=== PATIENT | male | born 1965 | race Caucasian/White ===

== ENCOUNTER 2018-02-28 09:23 | Emergency (ER) | payer OTHER ==
[~2018-02-28] VITALS: Ht 160 cm; Wt 65.8 kg
[~2018-02-28 09:23] MED LIST: ALBIPROI; ALBU90OI INH; AMLO5; AMOCLA500 PO; AMOX250 PO; AMOX500 PO; ASPI81EC PO; CARVEDILOL; DIVA500EC; FIBER LAXATIVE; HYDGUAL120 PO; LISINOPRIL; MECL25 PO; NORT50; ONDA4ODT MM; OXCA300 PO; RISP.5; [UNRECOGNIZED DRUG - OTHER]
[2018-02-28] MEDS ORDERED: CARV6.25 PO (10:10)
[2018-02-28] MEDS ORDERED: LISI5 PO (10:11)
[2018-02-28] MEDS ORDERED: ALBU90OI INH (10:13)
[2018-02-28 10:50] LABS: Source, Urine Clean Catch
[2018-02-28 10:56] LABS: BASOPHILS ABSOLUTE AUTO 0.02 K/mm3 (0.00-0.23); BASOPHILS PERCENT AUTO 0 % (0-2); EOSINOPHILS ABSOLUTE AUTO 0.06 K/mm3 (0.00-0.68); EOSINOPHILS PERCENT AUTO 1 % (0-6); Hematocrit 47.1 % (37.0-53.0); Hemoglobin 15.9 g/dL (13.5-17.5); IMMATURE GRAN ABSOLUTE AUTO 0.03 K/mm3 (0.00-0.10); IMMATURE GRAN PERCENT AUTO 0 % (0-1); LYMPHOCYTES ABSOLUTE AUTO 1.75 K/mm3 (0.84-5.20); LYMPHOCYTES PERCENT AUTO 25 % (21-46); MONOCYTES ABSOLUTE AUTO 0.54 K/mm3 (0.16-1.47); MONOCYTES PERCENT AUTO 8 % (4-13); Mean Corpuscular HGB 30.3 pg (26.0-34.0); Mean Corpuscular HGB Conc 33.8 g/dL (31.5-36.5); Mean Corpuscular Volume 90 fL (80-100); Mean Platelet Volume 9.3 fL (9.1-12.4); NEUTROPHILS ABSOLUTE AUTO 4.53 K/mm3 (1.96-9.15); NEUTROPHILS PERCENT AUTO 65 % (41-73); Platelet Count 343 K/mm3 (150-400); RDW Standard Deviation 42.7 fL (35.1-46.3); Red Blood Cell Count 5.24 M/mm3 (4.30-5.90); White Blood Cell Count 6.93 K/mm3 (4.00-11.30)
[2018-02-28 11:00] LABS: Bilirubin, Urine Neg (Neg); Blood, Urine Neg (Neg); Glucose Qualitative, Urine Neg (Neg); Ketones, Urine Neg (Neg); Leukocyte Esterase, Urine Neg (Neg); Nitrite, Urine Neg (Neg); Protein, Urine Neg (Neg); Specific Gravity, Urine 1.005 (1.003-1.022); Urobilinogen, Urine NORM (Normal)
[2018-02-28 11:06] LABS: Appearance, Urine Clear (Clear); Color, Urine Yellow (P-Yellow)
[2018-02-28 11:08] LABS: International Normalized Ratio 1.06
[2018-02-28 11:10] LABS: Alanine Aminotransfer (ALT/SGP 26 U/L (12-78); Albumin, Blood 3.7 g/dL (3.4-5.0); Albumin/Globulin Ratio 0.9 (0.8-1.8); Alk Phos 78 U/L (50-136); Anion Gap 8 mmol/L (6-16); Aspartate Aminotrans (AST/SGOT 18 U/L (12-37); Bilirubin, Total 0.4 mg/dL (0.1-1.0); Blood Urea Nitrogen 8 mg/dL (8-24); Bun/Creatinine Ratio 10.3 (12.0-20.0); CO2, Blood 25 mmol/L (21-32); Chloride, Blood 102 mmol/L (98-108); Creatinine, Blood 0.77 mg/dL (0.60-1.20); Globulin, Blood 4.3 g/dL (2.2-4.0); Glomerular Filtration Rate >60 (60-); Glucose, Blood 119 mg/dL (70-99); Potassium, Blood 4.4 mmol/L (3.5-5.5); Sodium, Blood 135 mmol/L (136-145)
[2018-02-28] MEDS ORDERED: Coumadin5 MG PO (11:49)
[2018-03-01] MEDS ORDERED: ENOX100I SC (11:50)
== END 2018-02-28 12:31 | disposition home or self-care (01) ==
LOC: ER 09:23
PROVIDERS: Internal Medicine
DX: I63.9 Cerebral infarction, unspecified (principal); R29.810 Facial weakness; R47.1 Dysarthria and anarthria; I48.92 Unspecified atrial flutter; Z79.899 Other long term (current) drug therapy; Z79.82 Long term (current) use of aspirin; I10 Essential (primary) hypertension; J45.909 Unspecified asthma, uncomplicated; F32.9 Major depressive disorder, single episode, unspecified; G40.909 Epilepsy, unspecified, not intractable, without status epilepticus
CPT/HCPCS: 70450; 71046; 80053; 81003; 85025; 85610; 93005; 93010; 96372; 99284; J1650

== ENCOUNTER 2018-03-03 00:46 | Day surgery (SDC) | payer OTHER ==
[~2018-03-03 00:46] MED LIST changes: +CARV6.25 PO; +Coumadin5 MG PO; +ENOX100I SC; +LISI5 PO
[2018-03-03] MEDS ORDERED: ELIQUIS5 MG PO ×2 (10:27→10:28)
== END 2018-03-03 09:55 | disposition home or self-care (01) ==
LOC: ATC 00:46
DX: I63.9 Cerebral infarction, unspecified (principal); I48.92 Unspecified atrial flutter; Z79.01 Long term (current) use of anticoagulants; I10 Essential (primary) hypertension; J45.909 Unspecified asthma, uncomplicated; F32.9 Major depressive disorder, single episode, unspecified
CPT/HCPCS: 36416; 85610; 96372; J1650

== ENCOUNTER 2018-04-21 07:57 | Day surgery (SDC) | payer OTHER ==
[~2018-04-21] VITALS: Ht 157.5 cm; Wt 54.0 kg
[~2018-04-21 07:57] MED LIST changes: +ACET500 PO; +BENZ100A PO; +Citrucel500 MG PO; +ELIQUIS5 MG PO; +Flonase 0.05% N16 GM; -RISP.5; +RISP.5 PO; +[UNRECOGNIZED DRUG - CODE] PO; -[UNRECOGNIZED DRUG - OTHER]
== END 2018-04-21 22:41 | disposition home or self-care (01) ==
LOC: MHTC 07:57
PROC: 5A2204Z Restoration of Cardiac Rhythm, Single (ICD-10-PCS; principal; 2018-04-21)
DX: I48.92 Unspecified atrial flutter (principal); Z86.73 Personal history of transient ischemic attack (TIA), and cerebral infarction without residual deficits
CPT/HCPCS: 92960; 93005; 93010; 99152; J0461; J2250; J2310; J3010; J7030

== ENCOUNTER 2019-08-02 19:11 | Emergency (ER) | payer OTHER ==
[~2019-08-02] VITALS: Ht 154.9 cm; Wt 49.0 kg
[2019-08-02 20:36] LABS: BASOPHILS ABSOLUTE AUTO 0.03 K/mm3 (0.00-0.23); BASOPHILS PERCENT AUTO 0 % (0-2); EOSINOPHILS ABSOLUTE AUTO 0.06 K/mm3 (0.00-0.68); EOSINOPHILS PERCENT AUTO 1 % (0-6); Hematocrit 47.3 % (37.0-53.0); Hemoglobin 16.3 g/dL (13.5-17.5); IMMATURE GRAN ABSOLUTE AUTO 0.04 K/mm3 (0.00-0.10); IMMATURE GRAN PERCENT AUTO 0 % (0-1); LYMPHOCYTES ABSOLUTE AUTO 2.55 K/mm3 (0.84-5.20); LYMPHOCYTES PERCENT AUTO 27 % (21-46); MONOCYTES ABSOLUTE AUTO 0.82 K/mm3 (0.16-1.47); MONOCYTES PERCENT AUTO 9 % (4-13); Mean Corpuscular HGB 32.3 pg (26.0-34.0); Mean Corpuscular HGB Conc 34.5 g/dL (31.5-36.5); Mean Corpuscular Volume 94 fL (80-100); Mean Platelet Volume 9.7 fL (9.1-12.4); NEUTROPHILS ABSOLUTE AUTO 5.81 K/mm3 (1.96-9.15); NEUTROPHILS PERCENT AUTO 63 % (41-73); Platelet Count 273 K/mm3 (150-400); RDW Coefficient Variation 12.5 % (11.7-14.2); RDW Standard Deviation 43.2 fL (35.1-46.3); Red Blood Cell Count 5.05 M/mm3 (4.30-5.90); White Blood Cell Count 9.31 K/mm3 (4.00-11.30)
[2019-08-02 20:59] LABS: Alanine Aminotransfer (ALT/SGP 26 U/L (12-78); Albumin, Blood 4.1 g/dL (3.4-5.0); Albumin/Globulin Ratio 0.9 (0.8-1.8); Alk Phos 122 U/L (50-136); Anion Gap 6 mmol/L (6-16); Aspartate Aminotrans (AST/SGOT 29 U/L (12-37); Bilirubin, Total 0.3 mg/dL (0.1-1.0); Blood Urea Nitrogen 19 mg/dL (8-24); Bun/Creatinine Ratio 24.9 (12.0-20.0); CO2, Blood 28 mmol/L (21-32); Calcium, Blood 9.8 mg/dL (8.5-10.1); Chloride, Blood 97 mmol/L (98-108); Creatinine, Blood 0.76 mg/dL (0.60-1.20); Globulin, Blood 4.5 g/dL (2.2-4.0); Glomerular Filtration Rate >60 (60-); Glucose, Blood 117 mg/dL (70-99); Potassium, Blood 4.1 mmol/L (3.5-5.5); Sodium, Blood 131 mmol/L (136-145); Total Protein, Blood 8.6 g/dL (6.4-8.2); Troponin I <0.015 ng/mL (0.000-0.040)
[2019-08-02 21:56] LABS: International Normalized Ratio 0.98; Prothrombin Time Results 10.4 Sec (9.7-11.5)
[2019-08-02] MEDS ORDERED: DOCCAL240 PO (22:05)
[2019-08-02 23:41] LABS: Cholesterol 158 mg/dL (50-200); Triglycerides 136 mg/dL (30-160)
[2019-08-03] MEDS ORDERED: Lipitor20 MG PO (00:30)
== END 2019-08-03 01:31 | disposition home or self-care (01) ==
LOC: ER 19:11
PROVIDERS: Emergency Medicine
DX: I69.392 Facial weakness following cerebral infarction (principal); I65.22 Occlusion and stenosis of left carotid artery; I10 Essential (primary) hypertension; J45.909 Unspecified asthma, uncomplicated; F32.9 Major depressive disorder, single episode, unspecified; Z88.8 Allergy status to other drugs, medicaments and biological substances; Z79.899 Other long term (current) drug therapy; Z79.82 Long term (current) use of aspirin; Z79.01 Long term (current) use of anticoagulants
CPT/HCPCS: 36415; 70450; 70496; 70498; 71046; 80053; 82465; 83721; 83880; 84478; 84484; 85025; 85610; 93005; 93010; 99285-25; Q9967

== ENCOUNTER 2021-07-24 13:12 | Emergency (ER) | payer OTHER ==
[~2021-07-24] VITALS: Ht 154.9 cm; Wt 48.5 kg
[~2021-07-24 13:12] MED LIST changes: +DOCCAL240 PO; +Lipitor20 MG PO
[2021-07-24 14:22] LABS: BASOPHILS ABSOLUTE AUTO 0.04 K/mm3 (0.00-0.23); BASOPHILS PERCENT AUTO 1 % (0-2); EOSINOPHILS ABSOLUTE AUTO 0.07 K/mm3 (0.00-0.68); EOSINOPHILS PERCENT AUTO 1 % (0-6); Hematocrit 49.4 % (37.0-53.0); Hemoglobin 16.9 g/dL (13.5-17.5); IMMATURE GRAN ABSOLUTE AUTO 0.03 K/mm3 (0.00-0.10); IMMATURE GRAN PERCENT AUTO 0 % (0-1); LYMPHOCYTES ABSOLUTE AUTO 1.42 K/mm3 (0.84-5.20); LYMPHOCYTES PERCENT AUTO 21 % (21-46); MONOCYTES ABSOLUTE AUTO 0.57 K/mm3 (0.16-1.47); MONOCYTES PERCENT AUTO 8 % (4-13); Mean Corpuscular HGB 31.7 pg (26.0-34.0); Mean Corpuscular HGB Conc 34.2 g/dL (31.5-36.5); Mean Corpuscular Volume 93 fL (80-100); Mean Platelet Volume 9.6 fL (9.1-12.4); NEUTROPHILS PERCENT AUTO 69 % (41-73); Platelet Count 238 K/mm3 (150-400); Red Blood Cell Count 5.33 M/mm3 (4.30-5.90); White Blood Cell Count 6.83 K/mm3 (4.00-11.30)
[2021-07-24 14:50] LABS: Alanine Aminotransfer (ALT/SGP 49 U/L (12-78); Albumin, Blood 3.8 g/dL (3.4-5.0); Albumin/Globulin Ratio 0.9 (0.8-1.8); Alk Phos 119 U/L (50-136); Anion Gap 7 mmol/L (6-16); Aspartate Aminotrans (AST/SGOT 26 U/L (12-37); Bilirubin, Total 0.6 mg/dL (0.1-1.0); Blood Urea Nitrogen 12 mg/dL (8-24); Bun/Creatinine Ratio 14.2 (12.0-20.0); CO2, Blood 22 mmol/L (21-32); Calcium, Blood 8.9 mg/dL (8.5-10.1); Chloride, Blood 96 mmol/L (98-108); Creatinine, Blood 0.85 mg/dL (0.60-1.20); Globulin, Blood 4.1 g/dL (2.2-4.0); Glomerular Filtration Rate >60 (60-); Glucose, Blood 124 mg/dL (70-99); Potassium, Blood 4.7 mmol/L (3.5-5.5); Sodium, Blood 125 mmol/L (136-145); Total Protein, Blood 7.9 g/dL (6.4-8.2)
[2021-07-24] MEDS ORDERED: CARV6.25 PO (15:07)
[2021-07-24] MEDS ORDERED: Amiodarone HCl200 MG PO (15:08)
[2021-07-24] MEDS ORDERED: Citrucel500 MG PO (15:10)
[2021-07-24] MEDS ORDERED: ELIQUIS2.5 MG PO (15:11)
[2021-07-24] MEDS ORDERED: Aspir 8181 MG PO (15:11)
[2021-07-24] MEDS ORDERED: BISA5EC PO (15:12)
[2021-07-24] MEDS ORDERED: ACET500 PO (15:13)
[2021-07-24] MEDS ORDERED: ALDACTONE25 MG PO (15:13)
[2021-07-24] MEDS ORDERED: ALBU8HFA2 INH (15:14)
[2021-07-24] MEDS ORDERED: Tessalon200 MG PO (15:14)
[2021-07-24] MEDS ORDERED: LASIX20 M2 PO (18:16)
[2021-07-25] MEDS ORDERED: MECL25 PO (12:46)
== END 2021-07-24 18:26 | disposition home or self-care (01) ==
LOC: ER 13:12
PROVIDERS: Physician Assistant
DX: E87.1 Hypo-osmolality and hyponatremia (principal); I10 Essential (primary) hypertension; J45.909 Unspecified asthma, uncomplicated; G40.909 Epilepsy, unspecified, not intractable, without status epilepticus; Z88.8 Allergy status to other drugs, medicaments and biological substances; Z79.899 Other long term (current) drug therapy; Z79.01 Long term (current) use of anticoagulants
CPT/HCPCS: 36415; 70450; 71046; 80053; 83735; 83880; 84484; 85025; 93005; 93010; 99284-25

== ENCOUNTER 2021-07-25 10:49 | Emergency (ER) | payer OTHER ==
[~2021-07-25] VITALS: Ht 144.8 cm; Wt 56.7 kg
[~2021-07-25 10:49] MED LIST changes: +ALBU8HFA2 INH; +ALDACTONE25 MG PO; +Amiodarone HCl200 MG PO; +Aspir 8181 MG PO; +BISA5EC PO; +ELIQUIS2.5 MG PO; +LASIX20 M2 PO; +Tessalon200 MG PO
[2021-07-25 11:17] LABS: BASOPHILS ABSOLUTE AUTO 0.05 K/mm3 (0.00-0.23); BASOPHILS PERCENT AUTO 1 % (0-2); EOSINOPHILS ABSOLUTE AUTO 0.08 K/mm3 (0.00-0.68); EOSINOPHILS PERCENT AUTO 1 % (0-6); Hematocrit 47.2 % (37.0-53.0); Hemoglobin 16.2 g/dL (13.5-17.5); IMMATURE GRAN ABSOLUTE AUTO 0.04 K/mm3 (0.00-0.10); IMMATURE GRAN PERCENT AUTO 1 % (0-1); LYMPHOCYTES PERCENT AUTO 18 % (21-46); MONOCYTES ABSOLUTE AUTO 0.59 K/mm3 (0.16-1.47); MONOCYTES PERCENT AUTO 7 % (4-13); Mean Corpuscular HGB 31.8 pg (26.0-34.0); Mean Corpuscular HGB Conc 34.3 g/dL (31.5-36.5); Mean Corpuscular Volume 93 fL (80-100); Mean Platelet Volume 9.5 fL (9.1-12.4); NEUTROPHILS ABSOLUTE AUTO 5.81 K/mm3 (1.96-9.15); NEUTROPHILS PERCENT AUTO 73 % (41-73); Platelet Count 230 K/mm3 (150-400); RDW Coefficient Variation 13.9 % (11.7-14.2); RDW Standard Deviation 47.8 fL (35.1-46.3); White Blood Cell Count 7.97 K/mm3 (4.00-11.30)
[2021-07-25 11:34] LABS: Alanine Aminotransfer (ALT/SGP 43 U/L (12-78); Albumin, Blood 3.7 g/dL (3.4-5.0); Alk Phos 112 U/L (50-136); Anion Gap 4 mmol/L (6-16); Aspartate Aminotrans (AST/SGOT 25 U/L (12-37); Bilirubin, Total 0.6 mg/dL (0.1-1.0); Blood Urea Nitrogen 20 mg/dL (8-24); CO2, Blood 26 mmol/L (21-32); Calcium, Blood 8.8 mg/dL (8.5-10.1); Chloride, Blood 98 mmol/L (98-108); Creatinine, Blood 1.11 mg/dL (0.60-1.20); Globulin, Blood 3.7 g/dL (2.2-4.0); Glomerular Filtration Rate >60 (60-); Glucose, Blood 160 mg/dL (70-99); Potassium, Blood 4.7 mmol/L (3.5-5.5); Sodium, Blood 128 mmol/L (136-145); Total Protein, Blood 7.4 g/dL (6.4-8.2)
[2021-07-25] MEDS ORDERED: MECL25 PO (12:46)
== END 2021-07-25 13:41 | disposition home or self-care (01) ==
LOC: ER 10:49
PROVIDERS: Emergency Medicine
DX: R42 Dizziness and giddiness (principal); T50.905A Adverse effect of unspecified drugs, medicaments and biological substances, initial encounter; E87.1 Hypo-osmolality and hyponatremia; I48.91 Unspecified atrial fibrillation; I10 Essential (primary) hypertension; G40.909 Epilepsy, unspecified, not intractable, without status epilepticus; J45.909 Unspecified asthma, uncomplicated; Z88.8 Allergy status to other drugs, medicaments and biological substances; Z79.899 Other long term (current) drug therapy; Z79.82 Long term (current) use of aspirin; Z79.01 Long term (current) use of anticoagulants; Z86.73 Personal history of transient ischemic attack (TIA), and cerebral infarction without residual deficits
CPT/HCPCS: 36415; 71045; 80053; 85025; 93005; 93010; 99285-25; A9270; J7030

== ENCOUNTER 2022-01-31 17:57 | Emergency (ER) | payer OTHER ==
[~2022-01-31] VITALS: Ht 157.5 cm; Wt 56.7 kg
[2022-01-31 19:01] LABS: BASOPHILS ABSOLUTE AUTO 0.02 K/mm3 (0.00-0.23); BASOPHILS PERCENT AUTO 0 % (0-2); EOSINOPHILS PERCENT AUTO 0 % (0-6); Hematocrit 42.5 % (37.0-53.0); Hemoglobin 14.7 g/dL (13.5-17.5); IMMATURE GRAN ABSOLUTE AUTO 0.05 K/mm3 (0.00-0.10); IMMATURE GRAN PERCENT AUTO 0 % (0-1); LYMPHOCYTES ABSOLUTE AUTO 1.49 K/mm3 (0.84-5.20); LYMPHOCYTES PERCENT AUTO 13 % (21-46); MONOCYTES ABSOLUTE AUTO 0.47 K/mm3 (0.16-1.47); MONOCYTES PERCENT AUTO 4 % (4-13); Mean Corpuscular HGB 32.5 pg (26.0-34.0); Mean Corpuscular HGB Conc 34.6 g/dL (31.5-36.5); Mean Corpuscular Volume 94 fL (80-100); Mean Platelet Volume 10.1 fL (9.1-12.4); NEUTROPHILS ABSOLUTE AUTO 9.83 K/mm3 (1.96-9.15); NEUTROPHILS PERCENT AUTO 83 % (41-73); Platelet Count 202 K/mm3 (150-400); RDW Coefficient Variation 12.2 % (11.7-14.2); RDW Standard Deviation 41.9 fL (35.1-46.3); Red Blood Cell Count 4.52 M/mm3 (4.30-5.90); White Blood Cell Count 11.86 K/mm3 (4.00-11.30)
[2022-01-31 19:35] LABS: Source, Urine Clean Catch
[2022-01-31 19:40] LABS: Bilirubin, Urine Neg (Neg); Blood, Urine Neg (Neg); Glucose Qualitative, Urine Neg (Neg); Ketones, Urine Neg (Neg); Leukocyte Esterase, Urine Neg (Neg); Nitrite, Urine Neg (Neg); Protein, Urine Neg (Neg); Urobilinogen, Urine NORM (Normal)
[2022-01-31 19:45] LABS: Appearance, Urine Clear (Clear); Color, Urine Pale Yellow (P-Yellow)
[2022-01-31 19:49] LABS: International Normalized Ratio 1.09; Prothrombin Time Results 11.4 Sec (9.7-11.5)
[2022-01-31 21:33] LABS: Alanine Aminotransfer (ALT/SGP 32 U/L (12-78); Albumin, Blood 3.7 g/dL (3.4-5.0); Alk Phos 98 U/L (50-136); Anion Gap 6 mmol/L (6-16); Aspartate Aminotrans (AST/SGOT 20 U/L (12-37); Bilirubin, Total 0.5 mg/dL (0.1-1.0); Blood Urea Nitrogen 20 mg/dL (8-24); Bun/Creatinine Ratio 25.2 (12.0-20.0); CO2, Blood 27 mmol/L (21-32); Calcium, Blood 8.7 mg/dL (8.5-10.1); Chloride, Blood 101 mmol/L (98-108); Globulin, Blood 3.7 g/dL (2.2-4.0); Glomerular Filtration Rate >60 (60-); Glucose, Blood 191 mg/dL (70-99); Potassium, Blood 3.5 mmol/L (3.5-5.5); Sodium, Blood 134 mmol/L (136-145); Total Protein, Blood 7.4 g/dL (6.4-8.2)
[2022-01-31] MEDS ORDERED: Citrucel500 MG (22:48)
[2022-02-01] MEDS ORDERED: LEVE500 PO (01:09)
== END 2022-02-01 02:53 | disposition home or self-care (01) ==
LOC: ER 17:57
PROVIDERS: Student in an Organized Health Care Education/Training Program
DX: S06.5X9A Traumatic subdural hemorrhage with loss of consciousness of unspecified duration, initial encounter (principal); G40.909 Epilepsy, unspecified, not intractable, without status epilepticus; I10 Essential (primary) hypertension; J45.909 Unspecified asthma, uncomplicated; I48.91 Unspecified atrial fibrillation; Z86.73 Personal history of transient ischemic attack (TIA), and cerebral infarction without residual deficits; Z88.8 Allergy status to other drugs, medicaments and biological substances; Z79.899 Other long term (current) drug therapy; Z79.82 Long term (current) use of aspirin; W18.30XA Fall on same level, unspecified, initial encounter
CPT/HCPCS: 36415; 70450; 71045; 80053; 81003; 85025; 85610; 85730; 86850; 86900; 86901; 93005; 93010; 96365; 96375; 99284-25; J1953; J7050

== ENCOUNTER 2022-02-02 12:48 | Emergency (ER) | payer OTHER ==
[~2022-02-02] VITALS: Ht 157.5 cm; Wt 56.7 kg
[~2022-02-02 12:48] MED LIST changes: +Citrucel500 MG; +LEVE500 PO
== END 2022-02-02 15:32 | disposition home or self-care (01) ==
LOC: ER 12:48
DX: S06.5X0A Traumatic subdural hemorrhage without loss of consciousness, initial encounter (principal); I10 Essential (primary) hypertension; I48.91 Unspecified atrial fibrillation; G40.909 Epilepsy, unspecified, not intractable, without status epilepticus; Z79.899 Other long term (current) drug therapy; W07.XXXA Fall from chair, initial encounter
CPT/HCPCS: 70450; 99283-25

== ENCOUNTER 2022-02-04 18:50 | Emergency (ER) | payer OTHER ==
[~2022-02-04] VITALS: Ht 152.4 cm; Wt 45.8 kg
[2022-02-04] MEDS ORDERED: Potassium Chlo20 ME1 PO (19:31)
[2022-02-04] MEDS ORDERED: HYDR1TAB94 PO (19:53)
== END 2022-02-04 20:06 | disposition home or self-care (01) ==
LOC: ER 18:50
DX: S42.211A Unspecified displaced fracture of surgical neck of right humerus, initial encounter for closed fracture (principal); I10 Essential (primary) hypertension; I48.91 Unspecified atrial fibrillation; Z79.899 Other long term (current) drug therapy; X58.XXXA Exposure to other specified factors, initial encounter
CPT/HCPCS: 29105; 99283-25; A9270

== ENCOUNTER 2022-04-13 14:07 | Emergency (ER) | payer OTHER ==
[~2022-04-13] VITALS: Ht 157.5 cm; Wt 45.4 kg
[~2022-04-13 14:07] MED LIST changes: +ATOR20 PO; +CARB10OTL BOTHEARS; +DOCU100 PO; +FURO20 PO; +HYDR1TAB94 PO; -OXCA300 PO; +Potassium Chlo20 ME1 PO; +TAMS.4ER PO; +TRILEPTAL PO; +[UNRECOGNIZED DRUG - CODE] DT
== END 2022-04-13 18:16 | disposition home or self-care (01) ==
LOC: ER 14:07
DX: S06.0X0A Concussion without loss of consciousness, initial encounter (principal); W01.190A Fall on same level from slipping, tripping and stumbling with subsequent striking against furniture, initial encounter; I10 Essential (primary) hypertension; J45.909 Unspecified asthma, uncomplicated; I48.91 Unspecified atrial fibrillation; Z79.01 Long term (current) use of anticoagulants; Z88.8 Allergy status to other drugs, medicaments and biological substances; Z79.899 Other long term (current) drug therapy
CPT/HCPCS: 70450; 99283-25

== ENCOUNTER → 2022-04-18 | Outpatient (CLI) | payer OTHER ==
[~2022-04-18] MED LIST changes: +LEVFLO500 PO
[2022-04-18 15:56] LABS: Source, Urine Voided
[2022-04-18 17:13] LABS: Appearance, Urine Cloudy (Clear); Bilirubin, Urine Neg (Neg); Blood, Urine 5+ (Neg); Color, Urine Amber (P-Yellow); Glucose Qualitative, Urine Neg (Neg); Ketones, Urine Neg (Neg); Leukocyte Esterase, Urine 3+ (Neg); Nitrite, Urine Neg (Neg); Protein, Urine 3+ (Neg); Urobilinogen, Urine 1+ (Normal)
[2022-04-18 17:34] LABS: Red Blood Cells, Urine 25-50 /hpf (0-2); White Blood Cells, Urine TNTC /hpf (0-5)
[2022-04-18 17:36] LABS: Amorphous Light (0-Heavy); Bacteria Many /hpf; Squamous Epithelial Cells Rare /hpf (Few)
== END | disposition home or self-care (01) ==
LOC: LAB 15:54 → LAB SHORT 15:54
PROVIDERS: Physician Assistant
DX: N39.0 Urinary tract infection, site not specified (principal)
CPT/HCPCS: 81001; 87077; 87086; 87186

== ENCOUNTER 2022-04-21 18:50 | Inpatient (IN) | payer OTHER ==
[~2022-04-21] VITALS: Ht 152.4 cm; Wt 44.6 kg
[2022-04-21 20:15] LABS: Albumin/Globulin Ratio 0.4 (0.8-1.8); Bilirubin, Total 0.5 mg/dL (0.1-1.0); Bun/Creatinine Ratio 41.2 (12.0-20.0); Calcium, Blood 8.2 mg/dL (8.5-10.1); Creatinine, Blood 0.61 mg/dL (0.60-1.20); Globulin, Blood 4.8 g/dL (2.2-4.0); Total Protein, Blood 6.8 g/dL (6.4-8.2)
[2022-04-21 20:44] LABS: BASOPHILS ABSOLUTE AUTO 0.02 K/mm3 (0.00-0.23); BASOPHILS PERCENT AUTO 0 % (0-2); EOSINOPHILS ABSOLUTE AUTO 0.01 K/mm3 (0.00-0.68); EOSINOPHILS PERCENT AUTO 0 % (0-6); Hematocrit 31.9 % (37.0-53.0); Hemoglobin 11.1 g/dL (13.5-17.5); IMMATURE GRAN ABSOLUTE AUTO 0.07 K/mm3 (0.00-0.10); IMMATURE GRAN PERCENT AUTO 1 % (0-1); LYMPHOCYTES ABSOLUTE AUTO 0.93 K/mm3 (0.84-5.20); LYMPHOCYTES PERCENT AUTO 10 % (21-46); MONOCYTES ABSOLUTE AUTO 0.99 K/mm3 (0.16-1.47); MONOCYTES PERCENT AUTO 11 % (4-13); Mean Corpuscular HGB 31.3 pg (26.0-34.0); Mean Corpuscular HGB Conc 34.8 g/dL (31.5-36.5); Mean Corpuscular Volume 90 fL (80-100); Mean Platelet Volume 8.9 fL (9.1-12.4); NEUTROPHILS ABSOLUTE AUTO 6.95 K/mm3 (1.96-9.15); NEUTROPHILS PERCENT AUTO 78 % (41-73); Platelet Count 445 K/mm3 (150-400); RDW Coefficient Variation 13.7 % (11.7-14.2); RDW Standard Deviation 45.7 fL (35.1-46.3); Red Blood Cell Count 3.55 M/mm3 (4.30-5.90); White Blood Cell Count 8.97 K/mm3 (4.00-11.30)
[2022-04-21 21:09] LABS: Influenza A, PCR NEGATIVE (NEGATIVE); Influenza B, PCR NEGATIVE (NEGATIVE); Resp Syncytial Virus, PCR NEGATIVE (NEGATIVE)
[2022-04-21 21:12] LABS: SARS-Cov-2 (COVID-19) PCR, MMC POSITIVE (NEGATIVE)
[2022-04-22 05:06] LABS: Albumin, Blood 1.8 g/dL (3.4-5.0); Albumin/Globulin Ratio 0.4 (0.8-1.8); Bilirubin, Total 0.4 mg/dL (0.1-1.0); Bun/Creatinine Ratio 29.2 (12.0-20.0); Calcium, Blood 8.2 mg/dL (8.5-10.1); Creatinine, Blood 0.65 mg/dL (0.60-1.20); Potassium, Blood 3.4 mmol/L (3.5-5.5); Total Protein, Blood 5.8 g/dL (6.4-8.2)
--- NOTE | 2022-04-22 05:52 | NUR ---
SHIFT SUMMARY Assumed care of pt at 2304 as an ER admit. A/Ox4, developmental delay, cooperative with care. 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 Caregiver Maya Hunt at bedside. Reports no pain, CP/pressure. Maintains over 95% on 2L NC. LS coarse t/o with a productive congested cough, unable to examine sputum as patient swallows it. SR w/PVC on tele in 70's. 2+ pitting edema BLE. Hyperactive bowel tones without N/V. Caregiver reports the patient has had diarrhea since starting the antibiotic for the UTI. Uses a urinal with assistance. ER nurse informed me that the penis was cut slightly down in the ED when patient had a little urine spill on him which startled the patient and the caregiver, the urinal was pulled away and grazed penis. Urine is very dark willard and slightly blood tinged. Heparin gtt was started on patient, will continue to monitor for penile bleeding. Superficial bed sore on L buttock covered with mepilex. Caregiver reports history of dysphagia and needing puree diet, and recently feels like he has been choking on liquids and thinks thickening is now required, ST frederickal ordered. Will report to rea SINGLETARY.
[2022-04-22 13:04] LABS: Hematocrit 30.7 % (37.0-53.0); Hemoglobin 10.6 g/dL (13.5-17.5); Mean Corpuscular HGB Conc 34.5 g/dL (31.5-36.5); Mean Corpuscular Volume 93 fL (80-100); Mean Platelet Volume 8.9 fL (9.1-12.4); Platelet Count 399 K/mm3 (150-400); RDW Coefficient Variation 13.8 % (11.7-14.2); RDW Standard Deviation 46.4 fL (35.1-46.3); Red Blood Cell Count 3.31 M/mm3 (4.30-5.90)
--- NOTE | 2022-04-22 13:23 | NUR ---
Tele called, pt has run of what appears to be vtach; caregiver called stating pt having a seizure. This rn to room, caregiver stating "He was sleeping, then started consulving, eyes rolled back and then fell back." Pt awake, answering questions, no changes from this am. Notified Dr Maguire, no new orders. Will continue to monitor.
[2022-04-22 13:29] LABS: Albumin, Blood 1.8 g/dL (3.4-5.0); Albumin/Globulin Ratio 0.4 (0.8-1.8); Bilirubin, Total 0.3 mg/dL (0.1-1.0); Bun/Creatinine Ratio 31.8 (12.0-20.0); Calcium, Blood 8.3 mg/dL (8.5-10.1); Creatinine, Blood 0.66 mg/dL (0.60-1.20); Globulin, Blood 4.4 g/dL (2.2-4.0); Potassium, Blood 4.1 mmol/L (3.5-5.5); Total Protein, Blood 6.2 g/dL (6.4-8.2)
--- NOTE | 2022-04-22 13:57 | NUR ---
Upon receiving a spiritual care referral, I visit pt. Patient is lying in bed and resting but easily awakens to the sound of his name. Pt tells me that he had a rough day yesterday but is better today. He tells me that he does not have COVID and that he will be just fine in a couple of days. Trent does things his way and in his timing. He is extremely positive. Maya his CG tells me that the goal is to recover from his "sickness" and then move focus back to dealing with his heart issues. Pt is very encouraged by convesation centered on God and by prayer. I provide both. I also play inspirational music for the pt and assist with feeding him his lunch. Pt responds well and voices much appreciation for the visit. I will continue to remain available to pt and fmaily.
--- NOTE | 2022-04-22 16:22 | NUR ---
Shift Summary Pt alert, oriented; calm and cooperative with care. Pt resting in bed, assist with movement in bed. Pt denies pain, chest pain, nausea, dizziness and numb/tingling. Sob with movement, spo2 >90% on 2l o2 via nc, titrated to ra t/o shift. Tele sinus with pvc, bp stable. Abd soft, nontender. Pt had seizure like ativity this afternoon, notified. ST in to see patient, new order entered. VSS. No other acute changes noted. Will continue to monitor until report given to oncoming rn.
--- NOTE | 2022-04-23 06:42 | NUR ---
SHIFT SUMMARY PT RESTED WELL, NO C/O PAIN. CAREGIVER AT BEDSIDE. SATS >90% ON ROOM AIR. VOIDING TO URINAL. NO SEIZURE LIKE ACTIVITY OVERNIGHT. C/O FEELING HOT AND FEVERISH..CHECKED ORAL TEMP, TYLENOL GIVEN. SEE EMAR. LIKELY DC TODAY.
[2022-04-23] MEDS ORDERED: OLUMIANT2 MG PO (11:45)
[2022-04-23] MEDS ORDERED: DECADRON6 M1 PO (11:46)
[2022-04-23] MEDS ORDERED: NITR100CA PO (11:47)
--- NOTE | 2022-04-23 15:31 | NUR ---
Discharge Summary Pt alert, oriented, pleasant and cooperative with care. Pt resting in bed, repositioned in bed. Pt denies pain, chest pain, sob, nasuea, and dizziness. Pt does say he "doesnt feel well" but is not able to elborate. Spo2 >90% on ra, breathing even and unlabored. Tele sinus 80's, bp stable. Pt abd soft, nontender, hyperactive. Other vss. No other acute changes noted. Clarified with Dr Maguire regarding baricitinib use only for inpatient, new orders to d/c from discharge medication rec. Educated caregiver and patient on discharge instructions, follow up appointment and prescriptions. Faxed med rec to [facility] per caregiver request. Pt left via wheelchair at approx 1312.
== END 2022-04-23 13:12 | disposition home or self-care (01) | DRG 177 ==
LOC: ER 18:50 → PCU 22:52
PROVIDERS: Family Medicine; Internal Medicine; Physician Assistant; ADMIT Internal Medicine
PROC: 8E0ZXY6 Isolation (ICD-10-PCS; principal; 2022-04-21)
PROC: 5A09357 Assistance with Respiratory Ventilation, Less than 24 Consecutive Hours, Continuous Positive Airway Pressure (ICD-10-PCS; 2022-04-21)
PROC: XW033E5 Introduction of Remdesivir Anti-infective into Peripheral Vein, Percutaneous Approach, New Technology Group 5 (ICD-10-PCS; 2022-04-22)
PROC: XW0DXM6 Introduction of Baricitinib into Mouth and Pharynx, External Approach, New Technology Group 6 (ICD-10-PCS; 2022-04-22)
PROC: 3E0DX3Z Introduction of Anti-inflammatory into Mouth and Pharynx, External Approach (ICD-10-PCS; 2022-04-22)
DX: U07.1 COVID-19 (principal); I50.23 Acute on chronic systolic (congestive) heart failure; J12.82 Pneumonia due to coronavirus disease 2019; J96.01 Acute respiratory failure with hypoxia; N39.0 Urinary tract infection, site not specified; E87.1 Hypo-osmolality and hyponatremia; I48.0 Paroxysmal atrial fibrillation; R94.31 Abnormal electrocardiogram [ECG] [EKG]; I11.0 Hypertensive heart disease with heart failure; I69.398 Other sequelae of cerebral infarction; F32.A Depression, unspecified; J45.909 Unspecified asthma, uncomplicated; D53.9 Nutritional anemia, unspecified; R62.50 Unspecified lack of expected normal physiological development in childhood; G40.909 Epilepsy, unspecified, not intractable, without status epilepticus; Z88.8 Allergy status to other drugs, medicaments and biological substances; Z95.2 Presence of prosthetic heart valve; Z79.899 Other long term (current) drug therapy; Z79.01 Long term (current) use of anticoagulants; Z98.890 Other specified postprocedural states
CPT/HCPCS: 0241U; 36415; 71045; 80053; 83605; 83880; 84484; 85025; 85027; 85730; 87040; 92610; 93005; 93010; 93306; 94660; 94762; 96365; 96366; 96375; 99285-25; A9270; C9113; C9399; J0248; J1644; J1940; J2405; J3480; J7050

== ENCOUNTER 2022-06-12 13:33 | Inpatient (IN) | payer OTHER ==
[~2022-06-12] VITALS: Ht 154.9 cm; Wt 40.0 kg
[~2022-06-12 13:33] MED LIST changes: +DECADRON6 M1 PO; +NITR100CA PO; +OLUMIANT2 MG PO
[2022-06-12 14:27] LABS: BASOPHILS ABSOLUTE AUTO 0.02 K/mm3 (0.00-0.23); BASOPHILS PERCENT AUTO 0 % (0-2); EOSINOPHILS ABSOLUTE AUTO 0.01 K/mm3 (0.00-0.68); EOSINOPHILS PERCENT AUTO 0 % (0-6); Hematocrit 34.1 % (37.0-53.0); Hemoglobin 10.2 g/dL (13.5-17.5); IMMATURE GRAN ABSOLUTE AUTO 0.07 K/mm3 (0.00-0.10); IMMATURE GRAN PERCENT AUTO 1 % (0-1); LYMPHOCYTES ABSOLUTE AUTO 1.52 K/mm3 (0.84-5.20); LYMPHOCYTES PERCENT AUTO 12 % (21-46); MONOCYTES ABSOLUTE AUTO 0.44 K/mm3 (0.16-1.47); MONOCYTES PERCENT AUTO 4 % (4-13); Mean Corpuscular HGB 30.8 pg (26.0-34.0); Mean Corpuscular HGB Conc 29.9 g/dL (31.5-36.5); Mean Corpuscular Volume 103 fL (80-100); Mean Platelet Volume 10.8 fL (9.1-12.4); NEUTROPHILS ABSOLUTE AUTO 10.26 K/mm3 (1.96-9.15); NEUTROPHILS PERCENT AUTO 83 % (41-73); Platelet Count 297 K/mm3 (150-400); RDW Coefficient Variation 17.7 % (11.7-14.2); RDW Standard Deviation 66.9 fL (35.1-46.3); Red Blood Cell Count 3.31 M/mm3 (4.30-5.90); White Blood Cell Count 12.32 K/mm3 (4.00-11.30)
[2022-06-12 14:39] LABS: Source, Urine Clean Catch
[2022-06-12 14:46] LABS: Appearance, Urine Clear (Clear); Bilirubin, Urine Neg (Neg); Blood, Urine 1+ (Neg); Color, Urine Yellow (P-Yellow); Glucose Qualitative, Urine 4+ (Neg); Ketones, Urine Neg (Neg); Leukocyte Esterase, Urine Neg (Neg); Nitrite, Urine Neg (Neg); Protein, Urine 2+ (Neg); Urobilinogen, Urine 2+ (Normal)
[2022-06-12 14:52] LABS: Albumin, Blood 1.7 g/dL (3.4-5.0); Albumin/Globulin Ratio 0.3 (0.8-1.8); Bilirubin, Total 0.3 mg/dL (0.1-1.0); Bun/Creatinine Ratio 32.4 (12.0-20.0); Calcium, Blood 8.3 mg/dL (8.5-10.1); Creatinine, Blood 1.05 mg/dL (0.60-1.20); Globulin, Blood 5.5 g/dL (2.2-4.0); Potassium, Blood 4.5 mmol/L (3.5-5.5); Total Protein, Blood 7.2 g/dL (6.4-8.2)
[2022-06-12 14:59] LABS: Bacteria Few /hpf; Squamous Epithelial Cells Not Seen /hpf (Few); White Blood Cells, Urine 0-2 /hpf (0-5)
[2022-06-12 17:08] LABS: Influenza A, PCR NEGATIVE (NEGATIVE); Influenza B, PCR NEGATIVE (NEGATIVE); Resp Syncytial Virus, PCR NEGATIVE (NEGATIVE); SARS-Cov-2 (COVID-19) PCR, MMC NEGATIVE (NEGATIVE)
[2022-06-12 19:30] LABS: Calcium, Blood 7.8 mg/dL (8.5-10.1); Potassium, Blood 3.6 mmol/L (3.5-5.5)
--- NOTE | 2022-06-13 03:56 | NUR ---
rECEIVED A CALL FROM TELE MONITOR THAT PT WAS IN V-TACH. UPON ARRIVAL TO ROOM PT WAS UNRESPONSIVE. CALLED RAPID RESPONSE ON PT AND ESCALATED TO CODE.
[2022-06-13 04:01] LABS: PCO2 Arterial 48.4 mmHg (35-45); PO2 Arterial 103 mmHg (80-100); pH Blood Arterial 7.33 (7.35-7.45)
[2022-06-13 04:27] LABS: Hematocrit 36.9 % (37.0-53.0); Hemoglobin 10.7 g/dL (13.5-17.5); Mean Corpuscular HGB 31.2 pg (26.0-34.0); NRBC ABSOLUTE 0.07 K/mm3 (0.00-0.02); NRBC Auto 0.3 /100 WBC (0.0-0.2); Platelet Count 351 K/mm3 (150-400); RDW Coefficient Variation 17.9 % (11.7-14.2); RDW Standard Deviation 72.3 fL (35.1-46.3); Red Blood Cell Count 3.43 M/mm3 (4.30-5.90); White Blood Cell Count 21.19 K/mm3 (4.00-11.30)
[2022-06-13 04:32] LABS: Mean Corpuscular Volume 108 fL (80-100)
[2022-06-13 04:35] LABS: Calcium, Blood 7.8 mg/dL (8.5-10.1); Potassium, Blood 4.4 mmol/L (3.5-5.5)
[2022-06-13 05:25] LABS: Source, Urine Foley catheter
[2022-06-13 05:36] LABS: Appearance, Urine Clear (Clear); Bilirubin, Urine Neg (Neg); Blood, Urine Neg (Neg); Color, Urine Yellow (P-Yellow); Glucose Qualitative, Urine 4+ (Neg); Ketones, Urine Neg (Neg); Leukocyte Esterase, Urine Neg (Neg); Nitrite, Urine Neg (Neg); Protein, Urine 2+ (Neg); Urobilinogen, Urine 1+ (Normal)
[2022-06-13 05:48] LABS: Red Blood Cells, Urine 0-2 /hpf (0-2); White Blood Cells, Urine 0-2 /hpf (0-5)
[2022-06-13 05:50] LABS: Bacteria Few /hpf; Granular Casts 0-2 /lpf (0); Hyaline Casts 0-2 /lpf (0-2); Squamous Epithelial Cells Not Seen /hpf (Few)
--- NOTE | 2022-06-13 06:55 | NUR ---
PATIENT TO ROOM ICU 14 POST CODE AT 0345. PUPILS REACTIVE, NO MOVEMENT, PATIENT FLACCID AND UNRESPONSIVE, NO GAG REFLEX. 02 SATS 100% ON VENT AC VC+ 16/400/8/100%, RR 16, LS COARSE T/O, LLL DIMINISHED. HR SR-ST 80s-110. LEVOPHED TITRATED PRN AND VASO INFUSING TO MAINTAIN MAP >65. EXTREMETIES MOTTLED. OG PLACED AND VERIFIED WITH X-RAY, DR AT BEDSIDE TO CONFIRM OG AND ETT PLACEMENT. OG TO LIS WITH SMALL AMOUNT OF GREEN BILE. TEMP JACOBSON PLACED, 1400 DARK SUKH URINE OUT. PATIENT TEMP 101.9, TYLENOL GIVEN AND ICE PACKS PLACED. DR. INGRAM TO BEDSIDE TO PLACE CENTRAL LINE. IO REMOVED. STRATIGRAPHY TEACHER NOTIFIED CAREGIVER OF CHANGES AND ATTEMPTED TO CONTACT FAMILY.
--- NOTE | 2022-06-13 08:00 | NUR ---
Churchill of Care: Care assumed at 0700hr. Patient intubated with vent to AC 16/400/8/100%, FiO2 quickly decreased to 70%, SpO2 remains 98=-100%, tolerating vent without difficulty. No sedation medications at this time. Patient showed slight facial grimace to noxious stimuli, but not openging eyes or following any commands. Not withdrawing to painful stimuli, but shows occasional and slight movement of all extremities. No gag but does cough with ET suctioning. Pupils equal and reactive to light. Levophed gtt at 15mcg/min, Vasopressin at 0.04 u/hr, systolic BP 80's=90's, MAP's 60's-70's. HR shows NSR in the 80's-90's. Wong cath patent and intact, draining small amount of dark yellow urine. Central line to rt groin patent and intact, will change dressing this morning per small amount of dried blood beneath dressing. Mother at bedside and updated to her satisfaction. Will continue to monitor.
--- NOTE | 2022-06-13 10:36 | NUR ---
Spiritual Care Visit. Pt. is intubated and non-responsive. Pts. mother is present and is previously known to this salesperson wigs. Mother is genuinely concerned, but demonstrates evidence of being realistic about his prognosis. Prayed with Pt. and Mother. Mother verbalizes gratitude for the spiritual care visit. Will remain available to family and Palliative Care team.
[2022-06-13 12:58] LABS: Base Excess Venous 3.1 mmol/L; Bicarbonate Venous 26.7 mmol/L (24.0-30.0); PCO2 Venous 40.3 mmHg (38-42); PO2 Venous 46.7 mmHg (38-42); pH Blood Venous 7.44 (7.34-7.37)
[2022-06-13 13:03] LABS: Automated BF RBC Count 0.102 M/mm3 (0-0); RBC Count, Body Fluid 102000 /mm3 (0-0); pH, Body Fluid 6.7
[2022-06-13 13:11] LABS: Protein, Body Fluid 4.3 g/dL
[2022-06-13 13:14] LABS: Appearance, Body Fluid Bloody (Clear); Cholesterol, Body Fluid <50 mg/dL; Color, Body Fluid Red (None-Yellow)
[2022-06-13 13:16] LABS: Automated BF WBC Count 12.612 K/mm3 (0-999); Body Fluid WBC Count 12612 /mm3 (0-999)
[2022-06-13 13:22] LABS: Albumin, Blood 1.4 g/dL (3.4-5.0); Albumin/Globulin Ratio 0.3 (0.8-1.8); Bilirubin, Total 0.6 mg/dL (0.1-1.0); Bun/Creatinine Ratio 24.6 (12.0-20.0); Calcium, Blood 7.2 mg/dL (8.5-10.1); Creatinine, Blood 1.42 mg/dL (0.60-1.20); Globulin, Blood 4.6 g/dL (2.2-4.0); Magnesium, Blood 2.9 mg/dL (1.6-2.4)
[2022-06-13 13:47] LABS: Total Cell Count, Body Fluid 100
--- NOTE | 2022-06-13 18:16 | NUR ---
Shift Summary: VS remain stable throughout shift. FiO2 continually decreased throughout shift, now at 30%, SpO2 98%, continues to tolerate vent without difficulty. Levophed gtt decreased from 15mcg/min to 11 mcg/min, BP remains stable. Dr. Palacio placed pig-tail chest tube to lt lateral chest wall at approx 1100hr. Chest tube placed for large lt pleural effusion. Placed to -20cm suction, non-fluctuating. 400ml of serosanguineous fluid drained from chest tube throughout remainder of shift (Dr. Palacio aware). Wong cath patent and intact, draining dark yellow, clear urine. Central line to rt groin remains patent and intact, dressing changed this shift. No significant changes in neuro status throughout shift. Patient began to show more prominant facial grimace to noxious stimuli, and slightly shrug shoulders. Patient also no has gag reflex (absent at shift change this morning). Continues to not follow any commands or show purposeful movement. Will continue to monitor until report to NOC shift RN.
--- NOTE | 2022-06-13 22:24 | NUR ---
ASSUMED CARE AT 1900 PATIENT INTUBATED AND SEDATED ON PROPOFOL. COUGH AND GAG REFLEX PRESENT, RESPONDS TO PAINFUL STIMULI, SOME EYE OPENING BUT NO TRACKING, GROSS MOVEMENT OF EXTREMITIES. UNABLE TO FOLLOW COMMANDS. SOME SPASTIC MOVEMENTS AT TIMES. 02 SATS 93% ON VENT AC VC+ 16/400/8/30%, RR 18-20. CHEST TUBE IN PLACE TO LEFT LATERAL CHEST WALL, -20CM SUCTION, SEROSANGUINEOUS OUTPUT, FLUSHED WITH DAYSHIFT RN AT START OF SHIFT. HR SR WITH PVCs 60s-70s, BP WITH MAP >65 WITH LEVOPHED INF AT 11 MCG/MIN AND VASO. OG WITH TUBE FEED, PIVOT AT GOAL RATE 25 MLS/HR WITH 30 MLS FLUSHES Q4. TEMP JACOBSON PATENT AND DRAINING TO GRAVITY. ICE PACKS ON PATIENT DUE TO INCREASING TEMP OF 99.8. PATIENT REPOSITIONED. ORAL CARE COMPLETE. FAMILY AT BEDSIDE AT START OF SHIFT. SEE SHIFT ASSESSMENT FOR MORE INFORMATION.
[2022-06-14 04:51] LABS: BASOPHILS ABSOLUTE AUTO 0.01 K/mm3 (0.00-0.23); BASOPHILS PERCENT AUTO 0 % (0-2); EOSINOPHILS ABSOLUTE AUTO 0.06 K/mm3 (0.00-0.68); EOSINOPHILS PERCENT AUTO 1 % (0-6); Hematocrit 25.8 % (37.0-53.0); Hemoglobin 7.7 g/dL (13.5-17.5); IMMATURE GRAN ABSOLUTE AUTO 0.09 K/mm3 (0.00-0.10); IMMATURE GRAN PERCENT AUTO 1 % (0-1); LYMPHOCYTES ABSOLUTE AUTO 2.13 K/mm3 (0.84-5.20); LYMPHOCYTES PERCENT AUTO 17 % (21-46); MONOCYTES ABSOLUTE AUTO 0.22 K/mm3 (0.16-1.47); MONOCYTES PERCENT AUTO 2 % (4-13); Mean Corpuscular HGB 30.3 pg (26.0-34.0); Mean Corpuscular HGB Conc 29.8 g/dL (31.5-36.5); Mean Platelet Volume 11.6 fL (9.1-12.4); NEUTROPHILS PERCENT AUTO 80 % (41-73); NRBC ABSOLUTE 0.02 K/mm3 (0.00-0.02); NRBC Auto 0.2 /100 WBC (0.0-0.2); Platelet Count 329 K/mm3 (150-400); RDW Coefficient Variation 17.6 % (11.7-14.2); RDW Standard Deviation 65.9 fL (35.1-46.3); Red Blood Cell Count 2.54 M/mm3 (4.30-5.90); White Blood Cell Count 12.21 K/mm3 (4.00-11.30)
[2022-06-14 05:01] LABS: Mean Corpuscular Volume 102 fL (80-100)
[2022-06-14 05:21] LABS: Albumin, Blood 1.3 g/dL (3.4-5.0); Albumin/Globulin Ratio 0.3 (0.8-1.8); Bilirubin, Total 0.4 mg/dL (0.1-1.0); Bun/Creatinine Ratio 28.4 (12.0-20.0); Calcium, Blood 7.4 mg/dL (8.5-10.1); Creatinine, Blood 1.48 mg/dL (0.60-1.20); Globulin, Blood 4.6 g/dL (2.2-4.0); Magnesium, Blood 3.1 mg/dL (1.6-2.4); Phosphorus, Blood 2.2 mg/dL (2.5-4.9); Potassium, Blood 3.1 mmol/L (3.5-5.5); Total Protein, Blood 5.9 g/dL (6.4-8.2)
--- NOTE | 2022-06-14 06:35 | NUR ---
SHIFT SUMMARY PATIENT REMAINS INTUBATED AND SEDATED ON PROPOFOL 15 MCG/KG/MIN. PUPILS REACTIVE, GRIMACES AND WITHDRAWS FROM PAINFUL STIMULI, GAG AND COUGH PRESENT. NO PURPOSEFUL MOVEMENT. 02 SATS 100% ON VENT AC VC+ 16/400/8/30%, RR 18. LS CLEAR TO DIM IN LLL. CHEST TUBE REMAINS IN PLACE WITH 170 SEROSANGUINEOUS, WITH SOME CALDERON OUTPUT. FLUSHED TWICE THIS SHIFT TO PREVENT CLOTTING. HR SR 60s-90s WITH PVCs. VASO OFF, AND LEVOPHED TITRATED DOWN TO 2 MCG/MIN. JACOBSON PATENT AND DRAINING TO GRAVITY, SUKH, WITH 500 OUT THIS SHIFT. OG WITH TUBE FEED INFUSING AT GOAL RATE. WENT TO CT THIS AM. BED BATH DONE. CALLED HOSPITALIST AND WILL BE REPLACING ELECTROLYTES.
--- NOTE | 2022-06-14 18:35 | NUR ---
SUMMARY PT INTUBATED AND SEDATED WITH PROPOFOL. PT WILL GRIMACE TO PAINFUL STIMULUS AND WITHDRAWLS FROM PAIN. EEG DONE TODAY WITH SEDATION OFF. LEVOPHED RUNNING AND UNABLE TO TITRATE OFF TODAY. CT TO L LATERAL CW DRAINGING SEROSANG FLUID. FLUSHED CT 2X THIS SHIFT AND FLUSHES EASILY. TOLERATING TUBE FEEDING. NO CHANGE TO VENT SETTINGS TODAY. NO SIGN OF DISTRESS.
--- NOTE | 2022-06-15 02:45 | NUR ---
PROPOFOL WAS PLACED ON STANDBY FOR SEDATION VACATION FOR APPX. 30 MINUTES. PT DID OPEN HIS EYES TO MY VOICE AND HOLD MY GAZE BUT DID NOT FOLLOW ANY COMMANDS OR NOD YES OR NO TO ANY QUESTIONS THAT I ASKED. SEDATION WAS RESUMED FOR PT COMFORT.
[2022-06-15 03:49] LABS: BASOPHILS ABSOLUTE AUTO 0.01 K/mm3 (0.00-0.23); BASOPHILS PERCENT AUTO 0 % (0-2); EOSINOPHILS ABSOLUTE AUTO 0.19 K/mm3 (0.00-0.68); EOSINOPHILS PERCENT AUTO 2 % (0-6); Hematocrit 25.9 % (37.0-53.0); IMMATURE GRAN PERCENT AUTO 1 % (0-1); LYMPHOCYTES ABSOLUTE AUTO 1.55 K/mm3 (0.84-5.20); LYMPHOCYTES PERCENT AUTO 14 % (21-46); MONOCYTES ABSOLUTE AUTO 0.25 K/mm3 (0.16-1.47); MONOCYTES PERCENT AUTO 2 % (4-13); Mean Corpuscular HGB 30.5 pg (26.0-34.0); Mean Corpuscular HGB Conc 30.9 g/dL (31.5-36.5); Mean Corpuscular Volume 99 fL (80-100); Mean Platelet Volume 11.8 fL (9.1-12.4); NEUTROPHILS ABSOLUTE AUTO 8.83 K/mm3 (1.96-9.15); NEUTROPHILS PERCENT AUTO 81 % (41-73); NRBC ABSOLUTE 0.02 K/mm3 (0.00-0.02); NRBC Auto 0.2 /100 WBC (0.0-0.2); Platelet Count 316 K/mm3 (150-400); RDW Coefficient Variation 17.3 % (11.7-14.2); RDW Standard Deviation 64.2 fL (35.1-46.3); Red Blood Cell Count 2.62 M/mm3 (4.30-5.90); White Blood Cell Count 10.93 K/mm3 (4.00-11.30)
[2022-06-15 04:03] LABS: Bun/Creatinine Ratio 28.9 (12.0-20.0); Calcium, Blood 7.5 mg/dL (8.5-10.1); Creatinine, Blood 1.28 mg/dL (0.60-1.20); Phosphorus, Blood 2.9 mg/dL (2.5-4.9); Potassium, Blood 3.1 mmol/L (3.5-5.5)
--- NOTE | 2022-06-15 06:06 | NUR ---
SHIFT SUMMERY PT CONTINUES TO BE INTUBATED VIA ETT, OXYGEN SAT 100%. CHEST TUBE HAS SEROSANGUINOUS DRAINAGE, FLUSHED TWICE THIS SHIFT WITHOUT DIFFICULTY. NO LEAK, SET TO SUCTION PER MD ORDERS. PT HAS TF INFUSING VIA OG TUBE, RESIDUAL LESS THAN 10ML. PT WILL TRACK ME WITH HIS EYES BUT DOES NOT FOLLOW COMMANDS. PT IS IN SR ON THE AIRFIELD MANAGER W/FREQUENT PVCS, LEVOPHED AT 4MCGS/MIN TO MAINTAIN MAP >65. PROPOFOL FOR SEDATION AT 10MCGS. JACOBSON CATH INTACT AND DRAINING YELLOW URINE. NO ACUTE CHANGES OVERNIGHT.
[2022-06-15 06:34] LABS: Vancomycin, Random 10.8 ug/mL
--- NOTE | 2022-06-15 18:17 | NUR ---
SUMMARY PT INTUBATED. NO SEDATION FOR MOST OF THE DAY. PT WILL OPEN EYE'S SPONT AND ON COMMAND. TRACKS MOVEMENT IN ROOM AND MAKES GOOD EYE CONTACT. ABLE TO HOLD L HAND OFF THE BED FOR A FEW SECONDS WHEN PROMPTED. HAS BEEN ON SPONTANEOUS VENT SETTINGS MOST OF THE DAY. IF PT GETS TIRED HE IS TO GO BACK ON PREVIOUS SETTINGS. DR. CASTRO WANTS TO KEEP SEDATION AT A MINIMUM SO HE IS AWAKE AND ALERT TOMORROW TO ASSESS IF HE IS READY FOR EXTUBATION. SEROSANG CT OUTPUT DECREASED COMPARED TO YESTERDAY. FLUSHED 2X THIS SHIFT PER ORDERS. NO SIGN OF DISTRESS. FAMILY AT BEDSIDE MOST OF THE DAY AND UPDATED BY DR. CASTRO.
[2022-06-15 19:20] LABS: Potassium, Blood 3.5 mmol/L (3.5-5.5)
--- NOTE | 2022-06-15 19:40 | NUR ---
ASSUMED CARE OF PT, REPORT RECEIVED. PT IS NOTED WITH EYES SPONT OPEN AND TRACKING MOVEMENT IN ROOM, DOES NOT ANSWER YES/NO QUESTIONS, DOES MAKE SMALL MOVEMENT OF LEFT FINGERS WHEN INSTRUCTED, DOES NOT MOVE RIGHT HAND WHEN INSTRUCTED BUT GROSS MOVEMENT IS NOTED PRESENT TO RIGHT ARM, MOVES BOTH FEET AWAY FROM TOUCH STIMULUS TO SOLES. HRR, SINUS WITH RATE IN THE 80-90S, PRESSURES MAINTAINING WITH LEVOPHED ON STANDBY SINCE BEFORE 1200 TODAY. LUNGS CLEAR WITH DIM LEFT BASE, CHEST TUBE NOTED, SEE CHEST TUBE ASSESSMENT DOCUMENTATION, VENT ON SPONT, PEEP 5, FIO2 30%, SATS HIGH 90S, RATE HIGH TEENS TO 20 WITH INCREASE IN NOXIOUS STIMULI SUCH ORAL CARE. PIVOT TUBE FEED TO OG TUBE AT GOAL RATE OF 25 ML/HR, RESIDUAL 10 ML, ABD SOFT, NO GRIMACING WITH PALP. TEMP PROBE JACOBSON REMAINS IN PLACE DRAINING CLEAR YELLOW URINE. CENTRAL LINE ACCESS NOTED TO RIGHT GROIN, DRESSING CDI, NS INFUSING AT TKO.
[2022-06-16 03:40] LABS: Base Excess Venous 7.4 mmol/L; Bicarbonate Venous 30.3 mmol/L (24.0-30.0); PCO2 Venous 34.4 mmHg (38-42)
[2022-06-16 03:41] LABS: pH Blood Venous 7.55 (7.34-7.37)
[2022-06-16 03:47] LABS: BASOPHILS ABSOLUTE AUTO 0.01 K/mm3 (0.00-0.23); BASOPHILS PERCENT AUTO 0 % (0-2); EOSINOPHILS ABSOLUTE AUTO 0.12 K/mm3 (0.00-0.68); EOSINOPHILS PERCENT AUTO 1 % (0-6); Hemoglobin 7.6 g/dL (13.5-17.5); IMMATURE GRAN ABSOLUTE AUTO 0.07 K/mm3 (0.00-0.10); IMMATURE GRAN PERCENT AUTO 1 % (0-1); LYMPHOCYTES ABSOLUTE AUTO 1.73 K/mm3 (0.84-5.20); LYMPHOCYTES PERCENT AUTO 19 % (21-46); MONOCYTES ABSOLUTE AUTO 0.24 K/mm3 (0.16-1.47); MONOCYTES PERCENT AUTO 3 % (4-13); Mean Corpuscular HGB 30.4 pg (26.0-34.0); Mean Corpuscular HGB Conc 30.4 g/dL (31.5-36.5); Mean Corpuscular Volume 100 fL (80-100); Mean Platelet Volume 11.5 fL (9.1-12.4); NEUTROPHILS ABSOLUTE AUTO 6.93 K/mm3 (1.96-9.15); NEUTROPHILS PERCENT AUTO 76 % (41-73); NRBC ABSOLUTE 0.04 K/mm3 (0.00-0.02); NRBC Auto 0.4 /100 WBC (0.0-0.2); Platelet Count 244 K/mm3 (150-400); RDW Coefficient Variation 17.2 % (11.7-14.2); RDW Standard Deviation 63.6 fL (35.1-46.3)
[2022-06-16 04:04] LABS: Calcium, Blood 7.9 mg/dL (8.5-10.1); Creatinine, Blood 1.26 mg/dL (0.60-1.20); Magnesium, Blood 2.2 mg/dL (1.6-2.4); Phosphorus, Blood 3.4 mg/dL (2.5-4.9); Potassium, Blood 3.3 mmol/L (3.5-5.5)
--- NOTE | 2022-06-16 07:04 | NUR ---
PT CONTINUES TO OPEN EYES SPONT AND TRACK MOTION IN ROOM, FOLLOWED INSTRUCTIONS TO MOVE FINGERS OF LEFT HAND ONCE THIS SHIFT, CONTINUES TO CONTROL DROP OF LEFT HAND TO BED WITH SLOW DESCENT, ALLOWS RIGHT HAND TO FALL BACK TO PILLOWS, CONTINUES TO MOVE FEET AWAY FROM LIGHT TOUCH TO SOLES BILAT. LUNGS REMAIN CLEAR WITH DIM LEFT BASE, VENT WAS CHANGED FROM SPONTANEOUS TO AC/VC AT 2350 DUE TO LOW TIDAL VOLUMES AND PERIODS OF APNEA LASTING 4-5 SECONDS, SETTINGS UNTIL 0500 WERE 16/400/5/30% SPOKE WITH DR CASTRO REGARDING VPH AND RATE WAS DECREASED TO 12, PT HAS BEEN NOTED WHEN UNDISTURBED TO HAVE RATES DECREASE TO 14/MIN. CHEST TUBE FLUSHED X 2 THIS SHIFT PER ORDERS, PT TOLERATED WELL. OG RESIDUALS REMAIN 10 ML THROUGHOUT NOC, BOWEL MOVEMENTS X 3 THIS SHIFT, ACTIVE BOWEL TONES CONTINUE. TEMP PROBE JACOBSON REMAINS IN PLACE CONTINUES DRAINING CLEAR YELLOW URINE TO GRAVITY.
[2022-06-16 07:13] LABS: Vancomycin, Trough 9.1 ug/mL (5.0-10.0)
--- NOTE | 2022-06-16 14:55 | NUR ---
EXTUBATION PATIENT FOLLOWING COMMANDS, SQUEEZING HANDS TO COMMAND, WAVING TO FAMILY. REMAINED CALM AND COOPERATIVE ON SPONTANEOUS VENT SETTINGS. DR. ABRAMS NOTIFIED AND ROUNDED TO ASSESS. ORDERS RECEIVED TO EXTUBATE, EXTUBATION COMPLETE AT 1440 BY DEREJE COFFEY. ORAL SUCTION WAS PROVIDED AND PLACED ON 2L 02 VIA NC. SP02 95%, PATIENT REMAINS CALM AND COOPERATIVE WITH CARE.
--- NOTE | 2022-06-16 18:12 | NUR ---
SHIFT SUMMARY PATIENT BEGAN INTUBATED, NEURO STATUS IMPROVED THROUGH SHIFT. BECAME ALERT AND FOLLOWED COMMANDS. PATIENT WAS EXTUBATED TO 2L 02 VIA NC AT 1440 PREVIOUSLY CHARTED WITH PARENTS TO BEDSIDE. TF STOPPED AT THAT TIME. PATIENT NOW ATTEMPTING TO VERBALIZE NEEDS, REMAINS CALM AND COOPERATIVE WITH CARE. CHEST TUBE REMAINS PATENT AND SECURED WITH CLEAR, SUKH DRAINAGE. FLUSHED ORDERED. JACOBSON PATENT AND DRAINING CLEAR, YELLOW URINE. CURRENTLY NO S/S OF DISTRESS. VITALS STABLE. WILL GIVE REPORT TO ONCOMING RN.
--- NOTE | 2022-06-16 19:15 | NUR ---
ASSUMED CARE OF PT, BEDSIDE REPORT RECEIVED. PT IS RESTING QUIETLY RECLINING IN BED LISTENING TO MUSIC ON PORTABLE CD PLAYER WITH EARPHONES. SATS MAINTAINING WITH OXYGEN VIA NASAL CANNULA AT 2 L/MIN, NO VISIBLE INCREASED WORK OF BREATHING NOTED, OCCASIONAL STRONG MOIST COUGH IS NOTED, PT TOLERATES ORAL SUCTION WELL AT THIS TIME. FOLLOWS INSTRUCTIONS WELL. SEE SHIFT ASSESSMENT FOR FURTHER
[2022-06-17 03:49] LABS: BASOPHILS ABSOLUTE AUTO 0.01 K/mm3 (0.00-0.23); BASOPHILS PERCENT AUTO 0 % (0-2); EOSINOPHILS ABSOLUTE AUTO 0.09 K/mm3 (0.00-0.68); EOSINOPHILS PERCENT AUTO 1 % (0-6); Hemoglobin 7.5 g/dL (13.5-17.5); IMMATURE GRAN ABSOLUTE AUTO 0.08 K/mm3 (0.00-0.10); IMMATURE GRAN PERCENT AUTO 1 % (0-1); LYMPHOCYTES ABSOLUTE AUTO 1.55 K/mm3 (0.84-5.20); LYMPHOCYTES PERCENT AUTO 16 % (21-46); MONOCYTES ABSOLUTE AUTO 0.27 K/mm3 (0.16-1.47); MONOCYTES PERCENT AUTO 3 % (4-13); Mean Corpuscular HGB 30.6 pg (26.0-34.0); Mean Corpuscular Volume 102 fL (80-100); Mean Platelet Volume 11.9 fL (9.1-12.4); NEUTROPHILS ABSOLUTE AUTO 7.57 K/mm3 (1.96-9.15); NEUTROPHILS PERCENT AUTO 79 % (41-73); Platelet Count 239 K/mm3 (150-400); RDW Coefficient Variation 17.3 % (11.7-14.2); RDW Standard Deviation 63.9 fL (35.1-46.3); Red Blood Cell Count 2.45 M/mm3 (4.30-5.90); White Blood Cell Count 9.57 K/mm3 (4.00-11.30)
[2022-06-17 04:19] LABS: Albumin, Blood 1.2 g/dL (3.4-5.0); Albumin/Globulin Ratio 0.3 (0.8-1.8); Bilirubin, Total 0.6 mg/dL (0.1-1.0); Bun/Creatinine Ratio 25.2 (12.0-20.0); Calcium, Blood 7.5 mg/dL (8.5-10.1); Creatinine, Blood 1.27 mg/dL (0.60-1.20); Globulin, Blood 4.5 g/dL (2.2-4.0); Phosphorus, Blood 3.5 mg/dL (2.5-4.9); Potassium, Blood 3.7 mmol/L (3.5-5.5); Total Protein, Blood 5.7 g/dL (6.4-8.2)
--- NOTE | 2022-06-17 05:02 | NUR ---
PT IS NOTED TO SLEEP ONLY BRIEFLY THIS SHIFT, VERY EASY TO ROUSE WITH MOVEMENT IN ROOM. HE IS SPEAKING MORE THE SHIFT PROGRESSES AND ASKING FOR "MOM" AND "ROXANNA" HE STATES "OW" WHEN TURNED HOWEVER WHEN TURNS ARE COMPLETED HE STATES THAT HE IS COMFORTABLE. HE IS COOPERATIVE WITH ORAL CARE AND VERBALIZED UNDERSTANDING OF INCREASED RISK OF ASPIRATION IN ADDITION TO HIS BASELINE ASPIRATION RISK. HE STATES "WOW" WHEN EXPLAINED TO HIM THAT HE UNDERWENT CPR JUST A FEW DAYS AGO. HE DID ASK TO USE THE BEDPAN INTERMITTENTLY HOWEVER WAS ALREADY INCONT OF STOOL PRIOR TO EACH REQUEST. LUNGS REMAIN CLEAR WITH DIM BASES, SATS MAINTAINING WITH OXYGEN VIA NASAL CANNULA AT 2 L/MIN, STRONG COUGH IS NOTED, INTERMITTENTLY PRODUCTIVE OF THICK WHITE/YELLOW SPUTUM. RHYTHM CONTINUES SINUS WITH PVCS, PRESSURES MAINTAINING, EDEMA TO RIGHT HAND IS NOTED IMPROVING. STRENGTH IS NOTED TO BE IMPROVING. WILL CONT TO MONITOR.
--- NOTE | 2022-06-17 10:23 | NUR ---
Spiritual Care Visit. Pt. is sitting up in bed. Pt. has difficulty speaking but welcomes my visit. Pt. gives evidence of developmental disability, and is known to this telegraph printer mechanic. Re-established rapport. Prayed for Pt. Will look to connect with Pts. POA mother should she come in to visit.
[2022-06-17] MEDS ORDERED: Oxcarbazepine300 MG PO (10:39)
[2022-06-17] MEDS ORDERED: POTCHL20ER PO (10:43)
--- NOTE | 2022-06-17 11:16 | NUR ---
ASSUMED CARE OF PT, REPORT RCV'D FROM HAYDER MULLINS. PT ALERT TO SELF, ANSWERS YES/NO QUESTIONS, GARBLED SPEECH. SATS 90% ON 2LNC. LUNG SOUNDS COARSE, CLEARS WITH SUCTIONING, WEAK COUGH. PT FAILED MORNING SWALLOW EVAL, WILL PLACE DOBHOFF. DIETARY CONSULT. JACOBSON PATENT AND DRAINING TO GRAVITY. NSR WITH PVC'S. SEE FULL SHIFT ASSESSMENT.
--- NOTE | 2022-06-17 18:28 | NUR ---
SHIFT SUMMARY PT APPEARS MORE ALERT THIS EVENING AND ABLE TO MORE CLEARLY EXPRESS NEEDS. PT HAD SEVERAL INCIDENTS OF WATERY INCONTINENT BOWEL MOVEMENTS, RECTAL TUBE PLACED TO PROTECT SKIN FROM FURTHER BREAKDOWN. COCCYX DRESSING CHANGED X2. 900 ML SUKH COLORED URINE FROM JACOBSON CATH. 50 ML OUTPUT FROM LEFT LATERAL CHEST TUBE. JEVITY 1.2 STARTED @25 ML/HR (GOAL RATE 45 ML/HR) WITH 200 ML Q4 H2O FLUSH, INFUSING THROUGH DOBHOFF IN RIGHT NARE. PT'S FAMILY AND CAREGIVER AT BEDSIDE FOR MOST OF DAY. SEE PREVIOUS NOTES FROM THIS SHIFT, WILL REPORT TO ONCOMING NURSE.
--- NOTE | 2022-06-17 22:01 | NUR ---
ASSUMED CARE AT 1900 PATIENT IS ALERT AND ORIENTED X2-3, MUMBLES AND YELLS OUT AT TIMES, DIFFICULY TO UNDERSTAND. ABLE TO STATE HIS NAME AND ANSWERS SOME QUESTION APPROPRIETLY. 02 SATS 99% ON RA. CHEST TUBE TO LL WALL TO SUCTION. SMALL AMOUNT OF SEROSANGEUINOUS FLUID. HR SR 90s WITH FREQUENT PVCs. BP STABLE. DOBHOFF IN PLACE WITH TF AT 25 MLS/HR 200 MLS FLUSHES Q4 HOURS, WILL ADVANCED FEED RATE PER ORDERS. JACOBSON PATENT AND DRAINING TO GRAVITY. CL TO RIGHT GROIN REMOVED. PATIENT REPOSITIONED. CALL LIGHT IN REACH. SEE SHIFT ASSESSMENT FOR MORE INFORMATION.
--- NOTE | 2022-06-18 02:28 | NUR ---
PATIENTS TUBE FEED ADVANCED TO GOAL RATE OF 45 MLS/HR
[2022-06-18 04:09] LABS: BASOPHILS ABSOLUTE AUTO 0.01 K/mm3 (0.00-0.23); BASOPHILS PERCENT AUTO 0 % (0-2); EOSINOPHILS ABSOLUTE AUTO 0.14 K/mm3 (0.00-0.68); EOSINOPHILS PERCENT AUTO 2 % (0-6); Hematocrit 25.7 % (37.0-53.0); Hemoglobin 7.9 g/dL (13.5-17.5); IMMATURE GRAN ABSOLUTE AUTO 0.09 K/mm3 (0.00-0.10); IMMATURE GRAN PERCENT AUTO 1 % (0-1); LYMPHOCYTES ABSOLUTE AUTO 1.69 K/mm3 (0.84-5.20); LYMPHOCYTES PERCENT AUTO 19 % (21-46); MONOCYTES ABSOLUTE AUTO 0.33 K/mm3 (0.16-1.47); MONOCYTES PERCENT AUTO 4 % (4-13); Mean Corpuscular HGB 30.7 pg (26.0-34.0); Mean Corpuscular HGB Conc 30.7 g/dL (31.5-36.5); Mean Corpuscular Volume 100 fL (80-100); Mean Platelet Volume 11.7 fL (9.1-12.4); NEUTROPHILS ABSOLUTE AUTO 6.73 K/mm3 (1.96-9.15); NEUTROPHILS PERCENT AUTO 75 % (41-73); Platelet Count 262 K/mm3 (150-400); RDW Coefficient Variation 17.4 % (11.7-14.2); RDW Standard Deviation 63.3 fL (35.1-46.3); Red Blood Cell Count 2.57 M/mm3 (4.30-5.90); White Blood Cell Count 8.99 K/mm3 (4.00-11.30)
[2022-06-18 04:31] LABS: Albumin, Blood 1.3 g/dL (3.4-5.0); Albumin/Globulin Ratio 0.3 (0.8-1.8); Bilirubin, Total 0.6 mg/dL (0.1-1.0); Bun/Creatinine Ratio 27.4 (12.0-20.0); Calcium, Blood 8.2 mg/dL (8.5-10.1); Creatinine, Blood 1.17 mg/dL (0.60-1.20); Globulin, Blood 4.7 g/dL (2.2-4.0); Magnesium, Blood 2.3 mg/dL (1.6-2.4); Potassium, Blood 3.4 mmol/L (3.5-5.5)
--- NOTE | 2022-06-18 06:52 | NUR ---
SHIFT SUMMARY PATIENT IS ALERT AND ORIENTED X2-3, MOANS AND IS DIFFICULT TO UNDERSTAND. 02 SATS 97% ON RA. HR SR 80s, BP STABLE. DOBHOFF WITH TUBE FEED AT GOAL RATE 45 MLS/HR WITH 200 MLS FLUSHES Q4 HOURS. JACOBSON PATENT AND DRAINING TO GRAVITY. RECTAL TUBE WITH MINIMAL LIQUID STOOL. CALLED HOSPITALIST AND ORDERS TO REPLACE POTASSIUM, INFUSING NOW. PATIENT TURNED Q2 HOURS.
--- NOTE | 2022-06-18 11:10 | NUR ---
Spiritual Care Visit. Pt. is in bed and awake. Verbalizing is difficult for the pt., but he does recognize and welcome this graphic design assistant. Give pastoral encouragement and pray for Pt. Will coordinate with Palliative Care with communications with family.
--- NOTE | 2022-06-18 17:39 | NUR ---
SHIFT SUMMARY REPORT FROM [facility]. PT RESTING IN BED. WAKES c VERBAL STIMULI. ANSWERS IN ONE WORD RESPONSES, DIFFICULT TO UNDERSTAND D/T SLURRED SPEECH. MOTHER AT BEDSIDE MOST OF SHIFT. SHE IS ABLE TO COMMUNICATE c PT. PT C/O STONE, MEDICATED c TYLENOL, RESTING COMFORTABLY. TPA AND PULMOZYME ADMINSTERED INTRAPLEURAL, CHEST TUBE CLAMPED FOR ONE HOUR. 335 ML OF SEROSANGEOUS FLUID c CLOTS OUT. -20 CM OF SUCTION, NON FLUCTATING, DRESSING INTACT. LUNGS CLEAR. PT P/W/D. SR, RATE 80'S. BP STABLE. DOBHOFF TO RIGHT NARE, TUBE FEEDS AT GOAL. JACOBSON PATENT, DRAINED 700 ML CLEAR YELLOW URINE TO GRAVITY. WILL CONTINUE TO MONITOR UNTIL REPORT TO ONCOMING NURSE.
--- NOTE | 2022-06-18 19:44 | NUR ---
ASSUMED CARE AT 1900 PATIENT IS ALERT AND ORIENTED XSELF, FOLLOWING COMMANDS AND FAMILY. SPEECH INCOMPREHENSIBLE MOST THE TIME. 02 SATS 99% ON RA, UPPER LOBES SOUND COARSE, NONPRODUCTIVE COUGH. LEFT LATERAL WALL CHEST TUBE IN PLACE, SEROSANGUINOUS OUTPUT. HR SR 80s. BP STABLE, DENIES CP/PRESSURE. DOBHOFF WITH TUBE FEED JEVITY AT GOAL RATE OF 45 MLS/HR WITH 200 MLS FLUSHES Q4 HOURS. BOWEL TONES HYPERACTIVE X4. RECTAL TUBE IN PLACE WITH SMALL AMOUNT OF LIQUID BROWN STOOL DRAINAGE. TEMP JACOBSON PATENT AND DRAINING TO GRAVITY. PROTECTIVE HEEL DRESSINGS CHANGED, SKIN C/D/I. MEPILEX TO COCCYX CHANGED, PRESSURE ULCER VISUALIZED, NO REAL CHANGE IN SIZE. PATIENT REPOSITIONED. ORAL CARE DONE WITH SUCTION. CALL LIGHT IN REACH. SEE SHIFT ASSESSMENT FOR MORE INFORMATION.
[2022-06-19 04:13] LABS: BASOPHILS ABSOLUTE AUTO 0.02 K/mm3 (0.00-0.23); BASOPHILS PERCENT AUTO 0 % (0-2); EOSINOPHILS ABSOLUTE AUTO 0.11 K/mm3 (0.00-0.68); EOSINOPHILS PERCENT AUTO 1 % (0-6); Hematocrit 27.8 % (37.0-53.0); Hemoglobin 8.4 g/dL (13.5-17.5); IMMATURE GRAN PERCENT AUTO 1 % (0-1); LYMPHOCYTES ABSOLUTE AUTO 1.92 K/mm3 (0.84-5.20); LYMPHOCYTES PERCENT AUTO 20 % (21-46); MONOCYTES ABSOLUTE AUTO 0.45 K/mm3 (0.16-1.47); MONOCYTES PERCENT AUTO 5 % (4-13); Mean Corpuscular HGB 30.1 pg (26.0-34.0); Mean Corpuscular HGB Conc 30.2 g/dL (31.5-36.5); Mean Corpuscular Volume 100 fL (80-100); Mean Platelet Volume 11.6 fL (9.1-12.4); NEUTROPHILS PERCENT AUTO 74 % (41-73); Platelet Count 306 K/mm3 (150-400); RDW Coefficient Variation 17.5 % (11.7-14.2); RDW Standard Deviation 63.7 fL (35.1-46.3); Red Blood Cell Count 2.79 M/mm3 (4.30-5.90)
[2022-06-19 04:29] LABS: Albumin, Blood 1.4 g/dL (3.4-5.0); Anion Gap 5 mmol/L (6-16); Blood Urea Nitrogen 25 mg/dL (8-24); Bun/Creatinine Ratio 22.3 (12.0-20.0); CO2, Blood 27 mmol/L (21-32); Calcium, Blood 8.5 mg/dL (8.5-10.1); Chloride, Blood 111 mmol/L (98-108); Creatinine, Blood 1.12 mg/dL (0.60-1.20); Glomerular Filtration Rate 78 (60-); Glucose, Blood 179 mg/dL (70-99); Phosphorus, Blood 2.9 mg/dL (2.5-4.9); Sodium, Blood 143 mmol/L (136-145)
--- NOTE | 2022-06-19 05:20 | NUR ---
SHIFT SUMMARY PATIENT REMAINS ALERT AND ORIENTED X 2-3. SLURRED SPEECH/MOANING AT TIMES, DIFFICULT TO UNDERSTAND. 02 SATS 98% ON RA. CHEST TUBE REMAINS IN PLACE WITH 320 SS OUTPUT THIS SHIFT. HR SR 80-90s. BP STABLE. DOBHOFF WITH TUBE FEED AT GOAL RATE AND 200 MLS FLUSHES Q4 HOURS. RECTAL TUBE DRAINING LIQUID BROWN STOOL, 50 MLS OUT. TEMP JACOBSON PATENT AND DRAINING TO GRAVITY, CLEAR YELLOW OUTPUT, 800 OUT. ORAL CARE DONE Q4 HOURS. PATIENT REPOSITIONED Q2 HOURS. CALL LIGHT IN REACH.
--- NOTE | 2022-06-19 09:04 | NUR ---
ASSUMED CARE REPORT FROM STEPHANIE SINGLETARY AT 0700. PT RESTING IN BED. WAKES c VERBAL STIMULI. DIFFICULT TO UNDERSTAND SPEECH. MOANS AND ANSWERS IN ONE WORD RESPONSES. TRACKS STAFF IN ROOM. FOLLOWS SIMPLE COMMANDS. LUNGS CLEAR. CHEST TUBE TO LEFT LATERAL WALL, -20 CM WATER SUCTION, DRAINING SEROSANGENOUS FLUID. NO CREPITIS OR FLUCUATION NOTED. DR ABRAMS ROUNDED, PLAN FOR REPEAT TPA AND PULMOZYNE THIS SHIFT. SR c PVCS ON MONITOR, RATE 80'S. BP STABLE. TUBE FEEDS AT GOAL VIA DOBHOFF TO RIGHT NARE. JACOBSON PATENT, DRAINING CLEAR YELLOW URINE TO GRAVITY. RECTAL TUBE TO GRAVITY, LIQUID BROWN STOOL OUT. WILL CONTINUE TO MONITOR.
--- NOTE | 2022-06-19 17:02 | NUR ---
Spoke with pt's mom Karolina about pt's current hospitalization, specifically regarding aspiration. At this time, pt remains stephanie risk for aspiration and has not passed a swallow evaluation by ST. ST did remark he did slightly better today than the last 2. Pt's mom Karolina states she does know that pt has an advanced directive that he and she filled out together, that reads, "No Tube Feeding" under every section. However, she states tonight she doesn't believe he meant it "under every circumstance", and states she isn't really sure he understood what he was filling out. She does state she and her will pray about it. I did inform Chaplain Amara as he is known to this family and has been involved in his care. Palliative will continue to follow this pt and assist as needed.
--- NOTE | 2022-06-19 18:15 | NUR ---
SHIFT SUMMARY NO ACUTE CHANGES THIS SHIFT. CHEST TUBE REMAINS TO LEFT LATERAL WALL, -20 CM SUCTION, NO FLUCUATION OR CREPITIS. REPEATED PULMOZYNE AND TPA INTRAPLURALLY. 540 ML SERISANGENOUS FLUID OUT, DUTY OFFICER IN COLOR THAN EARLIER IN SHIFT. LUNGS CLEAR, ON RA. WORKED c SPEECH, REMAINS NPO. TUBE FEEDS INCREASED TO 50 ML/HR, FLUSHES DECREASED TO 30 ML q4 HR VIA DOBHOFF. RECTAL TUBE IN PLACE, 250 ML LIQUID BROWN STOOL OUT. JACOBSON PATENT, DRAINED 850 ML CLEAR YELLOW URINE OUT. PT/OT ORDERED FOR TOMORROW. WILL CONTINUE TO MONITOR UNTIL REPORT TO ONCOMING NURSE.
--- NOTE | 2022-06-19 18:40 | NUR ---
Spiritual Care Visit. Pt. is resting. Parents are present. Re-establish rapport. Pts. mother updated me on conversation with Maya in Palliative Care. was able to normalize the pt. experience by communicating that Pts. case would likely be considered by another Palliative Care staff on Thursday. Pt. wakes up during conversation and rapport is re-established with him. Prayed for Pt. Pt. and family verbalized gratitude for the spiritual care visit.
--- NOTE | 2022-06-19 20:25 | NUR ---
ASSUMED CARE AT 1900 PATIENT IS ALERT AND ORIENTED TO SELF, AND FOLLOWING DIRECTIONS. SPEECH IS DIFFICULT TO UNDERSTAND AND COMES OUT GARBLED. 02 SATS 95% ON RA. CHEST TUBE REMAINS IN PLACE TO SUCTION DRAINING SS FLUID. DOBHOFF INFUSING TUBE FEED AT GOAL RATE OF 50 MLS/HR AND FLUSHES 30 MLS Q4 HOURS. HR SR 80-90s WITH FREQUENT PVCs. BP STABLE. TEMP JACOBSON PATENT AND DRAINING TO GRAVITY. RECTAL TUBE DRAINING LIQUID BROWN STOOL. PATIENT REPOITIONED AND ORAL CARE DONE. SEE SHIFT ASSESSMENT FOR MORE INFORMATION.
[2022-06-20 03:59] LABS: BASOPHILS ABSOLUTE AUTO 0.01 K/mm3 (0.00-0.23); BASOPHILS PERCENT AUTO 0 % (0-2); EOSINOPHILS ABSOLUTE AUTO 0.09 K/mm3 (0.00-0.68); EOSINOPHILS PERCENT AUTO 1 % (0-6); Hematocrit 25.1 % (37.0-53.0); Hemoglobin 7.6 g/dL (13.5-17.5); IMMATURE GRAN ABSOLUTE AUTO 0.05 K/mm3 (0.00-0.10); IMMATURE GRAN PERCENT AUTO 1 % (0-1); LYMPHOCYTES ABSOLUTE AUTO 1.79 K/mm3 (0.84-5.20); LYMPHOCYTES PERCENT AUTO 22 % (21-46); MONOCYTES ABSOLUTE AUTO 0.35 K/mm3 (0.16-1.47); MONOCYTES PERCENT AUTO 4 % (4-13); Mean Corpuscular HGB 29.7 pg (26.0-34.0); Mean Corpuscular HGB Conc 30.3 g/dL (31.5-36.5); Mean Corpuscular Volume 98 fL (80-100); Mean Platelet Volume 12.1 fL (9.1-12.4); NEUTROPHILS ABSOLUTE AUTO 5.94 K/mm3 (1.96-9.15); NEUTROPHILS PERCENT AUTO 72 % (41-73); Platelet Count 280 K/mm3 (150-400); RDW Coefficient Variation 17.3 % (11.7-14.2); RDW Standard Deviation 61.6 fL (35.1-46.3); Red Blood Cell Count 2.56 M/mm3 (4.30-5.90); White Blood Cell Count 8.23 K/mm3 (4.00-11.30)
[2022-06-20 04:16] LABS: Albumin, Blood 1.2 g/dL (3.4-5.0); Anion Gap 7 mmol/L (6-16); Blood Urea Nitrogen 22 mg/dL (8-24); Bun/Creatinine Ratio 21.6 (12.0-20.0); CO2, Blood 27 mmol/L (21-32); Calcium, Blood 7.6 mg/dL (8.5-10.1); Chloride, Blood 108 mmol/L (98-108); Creatinine, Blood 1.02 mg/dL (0.60-1.20); Glomerular Filtration Rate 87 (60-); Glucose, Blood 188 mg/dL (70-99); Magnesium, Blood 1.8 mg/dL (1.6-2.4); Phosphorus, Blood 2.9 mg/dL (2.5-4.9); Potassium, Blood 3.6 mmol/L (3.5-5.5); Sodium, Blood 142 mmol/L (136-145)
--- NOTE | 2022-06-20 05:41 | NUR ---
SHIFT SUMMARY PATIENT IS ALERT AND ORIENTED X SELF, PLACE AND FOLLOWING COMMANDS. SPEECH IS BECOMING MORE CLEAR, ABLE TO UNDERSTAND PATIENT MORE. 02 SATS 97% ON RA, CHEST TUBE TO -20CM SUCTION WITH SEROSANGUINOUS THICK/CLOTS AT TIMES, 320 FOR OUTPUT THID SHIFT. TUBE FEED REMAINS AT GOAL RATE THROUGH DOBHOFF. HR SR-ST 80-110. BP STABLE. JACOBSON PATENT AND DRAINING TO GRAVITY. RECTAL TUBE WITH MINIMAL LIQUID BROWN OUTPUT. ORAL CARE DONE Q4 HOURS, PATIENT REPOSITIONED Q2 HOURS.
--- NOTE | 2022-06-20 07:37 | NUR ---
TOOK OVER CARE OF PT AT 0700.
--- NOTE | 2022-06-20 15:36 | NUR ---
SUMMARY NEURO: PT IS ORIENTED TO SELF, FAMILY AND PT IS ABLE TO FOLLOW DIRECTIONS. SPEECH IS STILL GARBLED. 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 VERY WEAK GRASP WITH RIGHT HAND BUT PT HAS A HX OF CVA AND CONTRACTURE OF RT SHOULDER. BLE EXTREMETY MOVEMENT IS LIMITED TO WIGGLING TOES AND PT NEEDS ENCOURAGEMENT TO FOLLOW THE COMMAND. PT DID NOT PULL BACK FROM PAINING BLE, INSTEAD STATED "OW". PT PASSED SPEECH'S SWALLOW EVAL AND IS NOT ON PUREED FOOR AND NECTAR THICK LIQUIDS. CARDIAC: FREQUENT PVC'S, 20MMOL KPHOS REPLACED TODAY. PULSES PALPABLE. +1 EDEMA BLE. LUNGS: CLEAR BILAT UPPER LOBES, DIMINISHED BLE. PT ON ROOM AIR. CHEST TUBE IN PLACE -20 SUCTION, NO CREPITIS OR LEAK. CHEST TUBE HAS MOSTLY DRAINED THICK SEROUS/PURULENT FLUID TODAY BUT HAD SOME SANGINOUS OUTPUT AFTER WORKING WITH PHYSICAL THERAPY. GI: FMS IN PLACE, BROWN LOOSE STOOL. HYPERACTIVE/ ACTIVE BOWEL SOUNDS. : JACOBSON IN PLACE.
--- NOTE | 2022-06-20 15:50 | NUR ---
Spiritual care Visit. Pt. is somnilent off and on during the visit. Pts. parents are present. Parents had many questions about the processes of the hospital. Listened theraputicly with a calming presence. Parents display evidence of engagement and understanding. Dr. Cr came in and briefed parents on the Pts. prognosis. Pt. woke up and was able to swallow thickened water by the ICU nurse. Pt. and parents displayed evidence of gratitude for the spiritual care visit.
--- NOTE | 2022-06-20 22:46 | NUR ---
ASSUMED CARE OF PT AT 1900 FROM ELICIA SINGLETARY PT SLEEPING WITH NO FAMILY IN ROOM. JEVITY 1.2 RUNNING 35 MLS/HR. NS RUNNING TKO. RECTAL TUBE IN PLACE WITH LEAKAGE APPARENT. TEMP JACOBSON DRAINING TO GRAVITY.
[2022-06-21 05:50] LABS: BASOPHILS ABSOLUTE AUTO 0.01 K/mm3 (0.00-0.23); BASOPHILS PERCENT AUTO 0 % (0-2); EOSINOPHILS ABSOLUTE AUTO 0.12 K/mm3 (0.00-0.68); EOSINOPHILS PERCENT AUTO 2 % (0-6); Hematocrit 22.6 % (37.0-53.0); Hemoglobin 6.9 g/dL (13.5-17.5); IMMATURE GRAN ABSOLUTE AUTO 0.09 K/mm3 (0.00-0.10); IMMATURE GRAN PERCENT AUTO 1 % (0-1); LYMPHOCYTES ABSOLUTE AUTO 2.11 K/mm3 (0.84-5.20); LYMPHOCYTES PERCENT AUTO 27 % (21-46); MONOCYTES ABSOLUTE AUTO 0.36 K/mm3 (0.16-1.47); MONOCYTES PERCENT AUTO 5 % (4-13); Mean Corpuscular HGB 30.3 pg (26.0-34.0); Mean Corpuscular HGB Conc 30.5 g/dL (31.5-36.5); Mean Corpuscular Volume 99 fL (80-100); Mean Platelet Volume 11.5 fL (9.1-12.4); NEUTROPHILS ABSOLUTE AUTO 5.13 K/mm3 (1.96-9.15); NEUTROPHILS PERCENT AUTO 66 % (41-73); Platelet Count 275 K/mm3 (150-400); RDW Coefficient Variation 17.8 % (11.7-14.2); RDW Standard Deviation 63.9 fL (35.1-46.3); Red Blood Cell Count 2.28 M/mm3 (4.30-5.90); White Blood Cell Count 7.82 K/mm3 (4.00-11.30)
--- NOTE | 2022-06-21 05:59 | NUR ---
END OF SHIFT SUMMARY PT A/O X3. SPEECH IS GARBLED BUT UNDERSTANDABLE. HX OF CVA AND RIGHT SIDED CONTRACTURE WITH LIMITED ROM. MONITOR SHOWING PREQUENT PVC'S THROUGHOUT SHIFT. +1 EDEMA BLE. CHEST TUBE IN PLACE WITH SUCTION PRESENT. NO S/S OF LEAK OR CREPETIS. CHEST TUBE FLUID BLOOD TINGED WITH PURULANT OUTPUT. TEMP JACOBSON IN PLACE TO GRAVITY DRAIN. FMS REMOVED THIS SHIFT WITH NO OTHER BOWEL MOVEMENT. STOOL UPON REMOVAL IS FORMED. HYPOACTIVE BOWEL TONES.
[2022-06-21 06:13] LABS: Bun/Creatinine Ratio 19.8 (12.0-20.0); Calcium, Blood 7.8 mg/dL (8.5-10.1); Creatinine, Blood 1.01 mg/dL (0.60-1.20); Phosphorus, Blood 3.5 mg/dL (2.5-4.9); Potassium, Blood 3.8 mmol/L (3.5-5.5)
--- NOTE | 2022-06-21 07:35 | NUR ---
TOOK OVER CARE OF PT AT 0700, PT RESTING ON RA
--- NOTE | 2022-06-21 18:20 | NUR ---
SUMMARY NEURO; PT SPEECH HAS IMPROVED THROUGHOUT THE DAY, ALTHOUGH STILL SLOW TO REPSOND AND SLURRED. PT IS MAKING SOME SHORT SENTANCES. LEFT ARM STRENGTH IS STRONG, RT ARM IS WEAK (BASELINE HOULDER CONTRACURE). PT IS ONLY JUST BARELY ABLE TO WIGGLE BLE TOES, NO MOVMENT FROM THE ANKLES OR KNEES NOTED. LUNGS: CLEAR UPPER LOBES, DIMINISHED BASES. CHEST TUBE IN PLACE, WITH -20 SUCTIONS, NO CREPITUS OR AIR LEAK. SEROUSANGINOUS AND PURULENT DRAINAGE NOTED. TOTAL OF 200ML OUTPUT. ON RA. CARDIAC: 1*HB WITH PVC'S. TRACE EDEMA IN BLE. SKIN: MEPITEL PLACED ON COCCYX OPENING BEFORE NEW FOAM WAS PLACED ON. SCATTERED BRUISING BUE. GI: PT ON BASELINE PUREED DIET WITH NECTAR THICK LIQUIDS. DOBHOFF REMOVED. THREE SOFT BOWEL MOVEMENTS THIS SHIFT. PT HAS BEEN EATING 75-100% OF MEALS. ; JACOBSON REMOVED AT 1400, HAS NOT YET VOIDED. ONE UNIT OF PRBC'S TRANSFUSED THIS AM
--- NOTE | 2022-06-21 21:23 | NUR ---
ASSUMED CARE OF PT @1900 FROM ELICIA SINGLETARY PT IN ROOM SLEEPING ON RA . NO FAMILY OR VISITORS AT THIS TIME. CHEST TUBE SET TO SUCTION. ZOSYN RUNNING @12.5 ML/HR SECONDARY TO NS TKO.
[2022-06-21 23:51] LABS: Source, Urine Foley catheter
[2022-06-22 00:02] LABS: Bilirubin, Urine Neg (Neg); Blood, Urine Neg (Neg); Glucose Qualitative, Urine Neg (Neg); Ketones, Urine Neg (Neg); Leukocyte Esterase, Urine Neg (Neg); Nitrite, Urine Neg (Neg); Protein, Urine 1+ (Neg); Urobilinogen, Urine NORM (Normal)
[2022-06-22 00:04] LABS: Appearance, Urine Clear (Clear); Color, Urine Pale Yellow (P-Yellow)
--- NOTE | 2022-06-22 06:00 | NUR ---
END OF SHIFT SUMMARY PT A/O TO PERSON, LOCATION, FAMILY. FOLLOWS COMMANDS AND ANSWERS QUESTIONS APPROPRIATELY. TKO RUNNAING @ 20 MLS/HR. INSULIN NOT GIVEN THIS SHIFT DUE TO CBG <150. fLOEY CATH DRAINING TO GRAVITY. OUTPUT OF 950 MLS THIS SHIFT. 2 FORMED STOOLS. 1ST DEGREE AV BLOCK WITH PVC'S VERY CONSITANT. PT HAS GOOD APPETITE WITH SNACK OF PUDDING @0000. PT ABLE TO SWALLOW FLOMAX MEDICATION ORDERED TO NOT BE CRUSHES. PILL GIVEN IN PUDDING AND SWALLOWED WITH NO APPARENT ISSUES. WILL CONTINUE TO MONITOR PT UNTIL DAYSHIFT RN HANDOFF.
--- NOTE | 2022-06-22 07:09 | NUR ---
TOOK OVER CARE OF PT AT 0700. PT RESTING ON RA.
[2022-06-22 08:05] LABS: BASOPHILS ABSOLUTE AUTO 0.02 K/mm3 (0.00-0.23); BASOPHILS PERCENT AUTO 0 % (0-2); EOSINOPHILS ABSOLUTE AUTO 0.05 K/mm3 (0.00-0.68); EOSINOPHILS PERCENT AUTO 1 % (0-6); Hematocrit 27.2 % (37.0-53.0); Hemoglobin 8.6 g/dL (13.5-17.5); IMMATURE GRAN ABSOLUTE AUTO 0.04 K/mm3 (0.00-0.10); IMMATURE GRAN PERCENT AUTO 1 % (0-1); LYMPHOCYTES ABSOLUTE AUTO 1.94 K/mm3 (0.84-5.20); LYMPHOCYTES PERCENT AUTO 23 % (21-46); MONOCYTES ABSOLUTE AUTO 0.48 K/mm3 (0.16-1.47); MONOCYTES PERCENT AUTO 6 % (4-13); Mean Corpuscular HGB 30.2 pg (26.0-34.0); Mean Corpuscular HGB Conc 31.6 g/dL (31.5-36.5); Mean Corpuscular Volume 95 fL (80-100); Mean Platelet Volume 11.3 fL (9.1-12.4); NEUTROPHILS ABSOLUTE AUTO 5.86 K/mm3 (1.96-9.15); NEUTROPHILS PERCENT AUTO 70 % (41-73); Platelet Count 302 K/mm3 (150-400); RDW Coefficient Variation 17.2 % (11.7-14.2); RDW Standard Deviation 59.6 fL (35.1-46.3); Red Blood Cell Count 2.85 M/mm3 (4.30-5.90); White Blood Cell Count 8.39 K/mm3 (4.00-11.30)
[2022-06-22 08:10] LABS: Bun/Creatinine Ratio 15.3 (12.0-20.0); Calcium, Blood 7.8 mg/dL (8.5-10.1); Creatinine, Blood 0.92 mg/dL (0.60-1.20); Potassium, Blood 3.8 mmol/L (3.5-5.5)
--- NOTE | 2022-06-22 17:55 | NUR ---
SHIFT SUMMARY PT HAS BEEN RESTING COMFORTABLY IN BED SINCE ARRIVING ON THE UNIT. PT HAS DENIED BEING IN ANY PAIN OR DISCOMFORT. CHEST TUBE DRAINAGE SYSTEM IS HOOKED TO WALL SUCTION AND SECURED TO THE FLOOR AT BEDSIDE. PT HAS TOLERATED ALL REPOSITIONING WELL. PT HAS BEEN COOPERATIVE WITH ALL CARES. VITAL SIGNS HAVE REMAINED STABLE AND WITHIN NORMAL LIMITS.
[2022-06-23 05:56] LABS: Hematocrit 25.5 % (37.0-53.0); Hemoglobin 8.1 g/dL (13.5-17.5); Mean Corpuscular HGB 30.5 pg (26.0-34.0); Mean Corpuscular HGB Conc 31.8 g/dL (31.5-36.5); Mean Corpuscular Volume 96 fL (80-100); Mean Platelet Volume 11.1 fL (9.1-12.4); Platelet Count 379 K/mm3 (150-400); RDW Coefficient Variation 16.9 % (11.7-14.2); RDW Standard Deviation 57.8 fL (35.1-46.3); Red Blood Cell Count 2.66 M/mm3 (4.30-5.90); White Blood Cell Count 9.58 K/mm3 (4.00-11.30)
[2022-06-23 06:27] LABS: Bun/Creatinine Ratio 14.9 (12.0-20.0); Calcium, Blood 7.7 mg/dL (8.5-10.1); Creatinine, Blood 0.74 mg/dL (0.60-1.20); Magnesium, Blood 1.7 mg/dL (1.6-2.4); Phosphorus, Blood 2.3 mg/dL (2.5-4.9); Potassium, Blood 3.6 mmol/L (3.5-5.5)
--- NOTE | 2022-06-23 06:50 | NUR ---
SHIFT SUMMARY PT ALERT. RESTING COMFORTABLE THROUGHOUT NIGHT. COOPERATIVE TO CARE, PLEASANT, AND CALLS OUT NEEDS. DENIES PAIN. CHEST TUBE DRAINING TO SUCTION. PT STARTED OFF SHIFT NEEDED FREQUENT BOWEL MOVEMENTS, EVERY 30 MINUTES. SOFT SMALL STOOL. LESS SHIFT WENT ON. AFEBRILE, HR SR W/ PVC'S, 80-90'S. BP STABLE. ON RA SATS OVER 97%. IN BED SLEEPING, WILL CONTINUE TO MONITOR UNTIL REPORT GIVEN TO DAYSHIFT RN
--- NOTE | 2022-06-23 12:14 | NUR ---
WOUND CARE NOTE THIS NURSE CLEANED WOUND ON COCCYX W/ 10 ML FLUSH, CALCIUM AGITATE PLACED UNDER NEW MEPILEX DRESSING. Q2 TURNING TO KEEP OFF PRESSURE POINT AND PREVENT FURTHER SKIN BREAKDOWN.
--- NOTE | 2022-06-23 16:59 | NUR ---
SHIFT SUMMARY PT IS ALERT TO SELF, PLACE AND PERSON BUT DOES NOT KNOW DAY/SITUATION. HE IS DEVELOPMENTALLY DELAYED AND IS PLEASANT AND COOPERATIVE WITH CARE. HE IS ABLE TO MAKE HIS NEEDS KNOWN AND HAS SHOWN APPROPRIATE USE OF CALL LIGHT. VITAL SIGNS HAVE BEEN STABLE, PER TELE REPORT THIS AM, HR WAS 90-101 BUT PT TELE HAS SINCE BEEN D/C'D PER ORDERS. SPO2 HAS BEEN 99-100% VIA ROOM AIR. HE HAS DENIED PAIN INCLUDING CHEST PAIN. HE ALSO DENIED FEELINGS OF NAUSEA AND HAD GOOD PO IN TAKE A FEEDER W/ HONEY THICK LIQUIDS. JACOBSON CATHETER WAS REMOVED THIS AM AFTER BLADDER TRAINING. PT HAS HAD FREQUENT EPISODES OF SMALL BM OR SMEARS. HE WILL OFTEN TIMES TELL STAFF WHEN HE NEEDS TO VOID BUT HAS HAD EPISODES OF INCONTINENCE. HE HAS HAD A SMALL VOID OF URINATION SINCE JACOBSON REMOVAL. Q2 TURNING IMPLIMENTED TO KEEP OFF OF PRESSURE POINTS. MEPILEX DRESSING OVER PRESSURE SORE IN PLACE AND IS DRY/CLEAN (WAS REPLACED BY THIS NURSE DURING SHIFT). CHEST TUBE WAS REMOVED THIS AM BY DR. INGRAM AND CHEST TUBE SITE HAS REMAINED DRY. NO OTHER ACUTE CHANGES NOTED. WILL CONTINUE TO MONITOR, CALL LIGHT IS IN REACH. PT NOW APPEARS TO BE SLEEPING.
--- NOTE | 2022-06-23 18:54 | NUR ---
STRAIGHT CATH NOTE PT STRAIGHT CATHED PER DR. ALMONTE ORDERS.
--- NOTE | 2022-06-24 11:40 | NUR ---
Spiritual Care Visit. Pt. is resting. Pts. parents are present and welomce my visit. Parents are unsettled by the news that Pt. is to be discharged. Parents are concerned that level of required Pt. care is beyond their ability to fulfill. Listen empathetically with a calming presence. Pt. wakes up and rapport is re-established. Pt. is pleasant and is known to this ic designer custom as one with limited accuity and a lifelong learning disability. Prayed with Pt. and family. Family verbalized gratitude for the spiritual care visit.
--- NOTE | 2022-06-24 19:14 | NUR ---
SHIFT SUMMARY PT MEDICAL NO TELE STATUS. A&O X3, SLOW TO RESPOND, BUT ANSWERS Qs & MAKES NEEDS KNOWN. PT VSS. SPO2 > 92% ON RA. PT ATTEMPT TO USE URINAL W/ INABILITY TO VOID. STRAIGHT CATH CONTINUED PER MD ALMONTE. BLADDER SCAN THIS AFTERNOON SHOWING APPROX 450 MLS URINE. STRAIGHT CATH W/ DELAY IN GETTING URINE FLOW, THEN URINE W/ SLOW TRICKLE OUT, PRODUCING 475 MLS URINE. BLADDER SCAN THIS EVENING SHOWING APPROX 250 MLS W/ NO URINE OUT WHEN ATTEMPTING TO STRAIGHT CATH AT END OF SHIFT. ATTENDS IN PLACE W/ PT INCONTINENT OF STOOL. PRN JENNIFER CARE/ATTENDS CHANGES PROVIDED.
--- NOTE | 2022-06-25 06:31 | NUR ---
SHIFT SUMMARY PT RESTING COMFORTABLY THROUGHOUT THE NIGHT. BP STABLE. AFEBRILE. PULSE 90'S. ON RA SATS OVER 98%. PT LETHARGIC POST ORAL ATIVAN ADMINISTRATION. BLADDER SCANNED AND PT STRAIGHT CATHED FOR 530ML OUTPUT. WILL CONTINUE TO MONITOR UNTIL REPORT GIVEN
--- NOTE | 2022-06-25 17:23 | NUR ---
SHIFT SUMMARY PT SLEPT FOR A LARGE PORTION OF THE DAY, THEY WERE EASILY ROUSABLE BY VOICE OR GENTLE TOUCH. PT WORKED WITH PHYSICAL AND OCCUPATIONAL THERAPY. PT WAS UNABLE TO VOID ON THEIR OWN AFTER MULTIPLE ATTEMPTS. THE PT WAS BLADDER SCANNED TO REVEAL APPROXIMATELY 550ML OF URINE WITHIN. THE PROVIDER WAS NOTIFIED AND NEW ORDERS WERE GIVEN TO PLACE AN INDWELLING URINARY CATHETER. PT TOLERATED PLACEMENT WELL.
--- NOTE | 2022-06-26 05:29 | NUR ---
SHIFT SUMMARY PT RESTING COMFORTABLY THROUGHOUT NIGHT. BP STABLE. ON RA SATS OVER 97%. AFEBRILE. PULSE 80-90'S. SLEEPY POST ATIVAN ADMINISTRATION. JACOBSON IN PLACE DRAINING TO GRAVITY. WILL CONTINUE TO MONITOR UNTIL REPORT GIVEN TO DAYSHIFT RN
[2022-06-26 09:32] LABS: Source, Urine Foley catheter
[2022-06-26 09:52] LABS: Bilirubin, Urine Neg (Neg); Blood, Urine 2+ (Neg); Glucose Qualitative, Urine Neg (Neg); Ketones, Urine Neg (Neg); Leukocyte Esterase, Urine Neg (Neg); Nitrite, Urine Neg (Neg); Protein, Urine 1+ (Neg); Specific Gravity, Urine 1.015 (1.003-1.022); Urobilinogen, Urine NORM (Normal)
[2022-06-26 09:54] LABS: Appearance, Urine Clear (Clear); Color, Urine Yellow (P-Yellow)
[2022-06-26 09:55] LABS: Squamous Epithelial Cells Rare /hpf (Few)
[2022-06-26 09:56] LABS: Bacteria Few /hpf
[2022-06-26 14:51] LABS: Influenza A, PCR NEGATIVE (NEGATIVE); Influenza B, PCR NEGATIVE (NEGATIVE); Resp Syncytial Virus, PCR NEGATIVE (NEGATIVE); SARS-Cov-2 (COVID-19) PCR, MMC NEGATIVE (NEGATIVE)
[2022-06-26] MEDS ORDERED: VISBIOME 112.51 EACH PO (14:56)
[2022-06-26] MEDS ORDERED: TAMS.4ER PO (14:56)
[2022-06-26] MEDS ORDERED: AMOXICILLI250 MG/5 M PO (15:00)
--- NOTE | 2022-06-26 16:00 | NUR ---
TRANSFER SUMMARY EMS TRANSPORT SERVICE PICKED UP THE PATIENT TO TRANSPORT TO THE RECEIVING FACILITY. ALL PERSONAL BELONGINGS WERE IN THE POSSESSION OF FAMILY AT TIME OF TRANSPORT. ALL DOCUMENTATION WAS IN THE POSSESSION OF TRANSPORT PERSONNEL.
--- NOTE | 2022-06-26 16:03 | NUR ---
INTER-FACILITY REPORT HAND-OFF REPORT GIVEN TO RN AT [facility].
== END 2022-06-26 15:54 | DRG 871 ==
LOC: ER 13:33 → ICUW 19:02 → ER 20:51 → MEDS 20:51 → ICUW 06-13 03:50 → PCU 06-22 14:10
PROVIDERS: Emergency Medicine; Family Medicine; Internal Medicine; Internal Medicine Critical Care Medicine; Nurse Practitioner Acute Care; ADMIT Internal Medicine
PROC: 3E03329 Introduction of Other Anti-infective into Peripheral Vein, Percutaneous Approach (ICD-10-PCS; 2022-06-12)
PROC: 0BH18EZ Insertion of Endotracheal Airway into Trachea, Via Natural or Artificial Opening Endoscopic (ICD-10-PCS; principal; 2022-06-13)
PROC: 5A1945Z Respiratory Ventilation, 24-96 Consecutive Hours (ICD-10-PCS; 2022-06-13)
PROC: 06HY33Z Insertion of Infusion Device into Lower Vein, Percutaneous Approach (ICD-10-PCS; 2022-06-13)
PROC: 0W9B30Z Drainage of Left Pleural Cavity with Drainage Device, Percutaneous Approach (ICD-10-PCS; 2022-06-13)
PROC: 3E033XZ Introduction of Vasopressor into Peripheral Vein, Percutaneous Approach (ICD-10-PCS; 2022-06-13)
PROC: 3E0L3GC Introduction of Other Therapeutic Substance into Pleural Cavity, Percutaneous Approach (ICD-10-PCS; 2022-06-18)
PROC: 3E0L3GC Introduction of Other Therapeutic Substance into Pleural Cavity, Percutaneous Approach (ICD-10-PCS; 2022-06-19)
DX: A41.9 Sepsis, unspecified organism (principal); G92.8 Other toxic encephalopathy; I46.2 Cardiac arrest due to underlying cardiac condition; J18.9 Pneumonia, unspecified organism; R65.21 Severe sepsis with septic shock; I49.01 Ventricular fibrillation; J86.9 Pyothorax without fistula; E87.2 Acidosis; E87.0 Hyperosmolality and hypernatremia; N17.9 Acute kidney failure, unspecified; I82.432 Acute embolism and thrombosis of left popliteal vein; I82.812 Embolism and thrombosis of superficial veins of left lower extremity; Z20.822 Contact with and (suspected) exposure to COVID-19; E87.6 Hypokalemia; Z66 Do not resuscitate; I48.0 Paroxysmal atrial fibrillation; D63.8 Anemia in other chronic diseases classified elsewhere; I05.0 Rheumatic mitral stenosis; R62.50 Unspecified lack of expected normal physiological development in childhood; R33.9 Retention of urine, unspecified; Z86.73 Personal history of transient ischemic attack (TIA), and cerebral infarction without residual deficits; I11.0 Hypertensive heart disease with heart failure; J45.909 Unspecified asthma, uncomplicated; G40.909 Epilepsy, unspecified, not intractable, without status epilepticus; F32.A Depression, unspecified; Z86.16 Personal history of COVID-19; Z98.890 Other specified postprocedural states; Z88.8 Allergy status to other drugs, medicaments and biological substances; Z79.899 Other long term (current) drug therapy; E86.0 Dehydration; Z95.2 Presence of prosthetic heart valve; R13.10 Dysphagia, unspecified
CPT/HCPCS: 0241U; 31500; 32551; 36415; 36430; 36556; 36600; 51702; 51703; 70450; 71045; 71260; 80048; 80053; 80069; 80202; 81001; 82465; 82803; 82947; 83605; 83690; 83735; 83880; 83986; 84100; 84132; 84145; 84157; 85025; 85027; 86850; 86900; 86901; 86923; 87040; 87070; 87205; 89051; 92526; 92610; 92950; 93005; 93010; 93308; 93321; 93970; 94002; 94003; 94760; 94762; 96361; 96374; 97110; 97162; 97166; 97530; 99285-25; A9270; C1729; C1751; J0282; J0610; J0696; J1644; J1815; J2543; J2704; J2997; J3010; J3370; J3475; J3480; J7030; J7040; J7042; J7050; J7060; P9016; Q9967

== ENCOUNTER 2023-01-27 11:03 | Day surgery (SDC) | payer OTHER ==
[~2023-01-27] VITALS: Ht 152.4 cm; Wt 38.1 kg
[~2023-01-27 11:03] MED LIST changes: +AMOXICILLI250 MG/5 M PO; +ENTRESTO 24 MG1 EACH PO; +Hair, Skin & N1 EACH PO; +MUPIROCIN2210; +OXYB5 PO; +Oxcarbazepine300 MG PO; +POTCHL20ER PO; +TRAZ50 PO; +VISBIOME 112.51 EACH PO
--- NOTE | 2023-01-27 13:35 | NUR ---
PT RETURNED TO RECOVERY ROOM IN BED. SUPRAPUBIC SITE SOFT WITH NO HEMATOMA, NO BLEEDING AND STAYFIX IN PLACE; GRAVITY BAD ATTACHED WITH RED TINGED URINE IN GRAVITY BAG. CALL LIGHT IN REACH.
--- NOTE | 2023-01-27 14:43 | NUR ---
PT DRESSED WITH ASSIST FROM 1 STAFF. SALINE LOCK REMOVED WITH CATHETER INTACT. WAITING FOR CAREGIVER TO ARRIVE TO GO OVER DISCHARGE INSTRUCTIONS.
--- NOTE | 2023-01-27 14:57 | NUR ---
CAREGIVER HERE, DISCHARGE REVIEWED WITH CAREGIVER. VERBALIZES UNDERSTANDING. STATES WILL CONTACT UROLOGIST IF HE HAS ANY OTHER QUESTIONS. PT TO PRIAVTE VEHICLE PER W/C
== END 2023-01-27 15:00 | disposition home or self-care (01) ==
LOC: MHTC 11:03
DX: I69.398 Other sequelae of cerebral infarction (principal); R33.9 Retention of urine, unspecified; N31.9 Neuromuscular dysfunction of bladder, unspecified; J45.909 Unspecified asthma, uncomplicated; I11.0 Hypertensive heart disease with heart failure; I50.20 Unspecified systolic (congestive) heart failure; I48.91 Unspecified atrial fibrillation; Z79.899 Other long term (current) drug therapy; Z79.01 Long term (current) use of anticoagulants
CPT/HCPCS: 51102; 76937; 99152; 99153; C1729; C1769; C1894; J2250; J3010; J7030; J7050; Q9967

== ENCOUNTER → 2023-11-06 | Outpatient (CLI) | payer OTHER ==
[2023-11-06 14:02] LABS: Source, Urine Foley catheter
[2023-11-06 15:41] LABS: Appearance, Urine Turbid (Clear); Bilirubin, Urine Neg (Neg); Blood, Urine 5+ (Neg); Color, Urine Red (P-Yellow); Glucose Qualitative, Urine Neg (Neg); Ketones, Urine Neg (Neg); Leukocyte Esterase, Urine 3+ (Neg); Nitrite, Urine Pos (Neg); Protein, Urine 4+ (Neg); Specific Gravity, Urine 1.015 (1.003-1.022); Urobilinogen, Urine NORM (Normal)
[2023-11-06 16:03] LABS: Bacteria Many /hpf; Red Blood Cells, Urine TNTC /hpf (0-2); Squamous Epithelial Cells Rare /hpf (Few); White Blood Cells, Urine TNTC /hpf (0-5)
[2023-11-06 16:04] LABS: Amorphous Light (0-Heavy); Mucus Light (0-Heavy)
[2023-11-06 16:05] LABS: Triple Phosphate Crystals Rare /hpf
== END ==
LOC: LAB SHORT 14:00 → LAB 14:00
PROVIDERS: Physician Assistant
DX: Z46.6 Encounter for fitting and adjustment of urinary device (principal); N31.9 Neuromuscular dysfunction of bladder, unspecified; R33.8 Other retention of urine
CPT/HCPCS: 81001; 87086

== ENCOUNTER 2024-09-04 15:37 | Emergency (ER) | payer OTHER ==
[~2024-09-04] VITALS: Ht 160 cm; Wt 40.4 kg
[~2024-09-04 15:37] MED LIST changes: +CEFD300 PO
[2024-09-04 15:54] VITALS: BP 138/63
[2024-09-04 16:41] LABS: Source, Urine Suprapubic Cath
[2024-09-04 16:44] LABS: Appearance, Urine Hazy (Clear); Bilirubin, Urine Neg (Neg); Blood, Urine 5+ (Neg); Color, Urine Amber (P-Yellow); Glucose Qualitative, Urine Neg (Neg); Ketones, Urine Neg (Neg); Leukocyte Esterase, Urine 3+ (Neg); Nitrite, Urine Pos (Neg); Protein, Urine 3+ (Neg); Urobilinogen, Urine NORM (Normal)
[2024-09-04 16:54] LABS: Bacteria Many /hpf; Red Blood Cells, Urine 25-50 /hpf (0-2); Squamous Epithelial Cells Rare /hpf (Few); WBC Cast 0-2 /lpf (0); White Blood Cells, Urine 50-100 /hpf (0-5)
[2024-09-04] MEDS ORDERED: Cefdinir 300 MG Cap PO ONE (17:20)
[2024-09-04] MEDS ORDERED: CEFD300 PO (17:22)
== END 2024-09-04 17:38 | disposition home or self-care (01) ==
LOC: ER 15:37
PROVIDERS: Physician Assistant
DX: N39.0 Urinary tract infection, site not specified (principal); J45.909 Unspecified asthma, uncomplicated; I48.91 Unspecified atrial fibrillation; Z96.0 Presence of urogenital implants; Z86.73 Personal history of transient ischemic attack (TIA), and cerebral infarction without residual deficits; Z79.51 Long term (current) use of inhaled steroids; Z79.899 Other long term (current) drug therapy; Z88.8 Allergy status to other drugs, medicaments and biological substances
CPT/HCPCS: 81001; 87077; 87086; 87186; 99283; A9270

== ENCOUNTER 2025-02-27 11:30 | Inpatient (IN) | payer OTHER ==
[~2025-02-27] VITALS: Ht 162.6 cm; Wt 41.0 kg
[~2025-02-27 11:30] MED LIST changes: +ATOR10 PO; -ATOR20 PO; -OXYB5 PO; +Oxybutynin Chlo10 MG PO
[2025-02-27] MEDS ORDERED: NS 1,000 ML IV SCH ×2 (12:00→17:00)
[2025-02-27 12:55] LABS: BASOPHILS ABSOLUTE AUTO 0.03 K/mm3 (0.00-0.23); BASOPHILS PERCENT AUTO 0 % (0-2); EOSINOPHILS ABSOLUTE AUTO 0.02 K/mm3 (0.00-0.68); EOSINOPHILS PERCENT AUTO 0 % (0-6); Hematocrit 42.9 % (37.0-53.0); Hemoglobin 13.3 g/dL (13.5-17.5); IMMATURE GRAN ABSOLUTE AUTO 0.06 K/mm3 (0.00-0.10); IMMATURE GRAN PERCENT AUTO 1 % (0-1); LYMPHOCYTES PERCENT AUTO 18 % (21-46); MONOCYTES ABSOLUTE AUTO 0.25 K/mm3 (0.16-1.47); MONOCYTES PERCENT AUTO 2 % (4-13); Mean Corpuscular HGB 30.2 pg (26.0-34.0); Mean Corpuscular Volume 97 fL (80-100); Mean Platelet Volume 9.7 fL (9.1-12.4); NEUTROPHILS PERCENT AUTO 79 % (41-73); Platelet Count 329 K/mm3 (150-400); RDW Coefficient Variation 15.1 % (11.7-14.2); RDW Standard Deviation 54.3 fL (35.1-46.3); Red Blood Cell Count 4.41 M/mm3 (4.30-5.90); White Blood Cell Count 10.76 K/mm3 (4.00-11.30)
[2025-02-27 13:14] LABS: CORONAVIRUS COVID-19 AG Negative (NEGATIVE); INFLUENZA A AG Negative (NEGATIVE); INFLUENZA B AG Negative (NEGATIVE)
[2025-02-27 13:33] LABS: Albumin, Blood 3.2 g/dL (3.4-5.0); Albumin/Globulin Ratio 0.7 (0.8-1.8); Bilirubin, Total 0.6 mg/dL (0.1-1.0); Bun/Creatinine Ratio 12.2 (12.0-20.0); Calcium, Blood 9.5 mg/dL (8.5-10.1); Creatinine, Blood 1.15 mg/dL (0.60-1.20); Globulin, Blood 4.6 g/dL (2.2-4.0); Potassium, Blood 3.7 mmol/L (3.5-5.5); Total Protein, Blood 7.8 g/dL (6.4-8.2)
[2025-02-27 14:09] LABS: Source, Urine Suprapubic Cath
[2025-02-27] MEDS ORDERED: METO50ER PO (14:09)
[2025-02-27] MEDS ORDERED: AMIODARONE HCL100 M3 PO (14:10)
[2025-02-27] MEDS ORDERED: BENEFIBER PO (14:10)
[2025-02-27] MEDS ORDERED: SENN187 PO (14:10)
[2025-02-27] MEDS ORDERED: BISA5EC PO (14:11)
[2025-02-27] MEDS ORDERED: DOXY100 PO (14:12)
[2025-02-27] MEDS ORDERED: Lactated Ringer's 1,000 ML IV SCH (14:20)
[2025-02-27] MEDS ORDERED: CefTRIAXone Sodium 1,000 MG in NS 100 ML IV ONE (15:00)
[2025-02-27 15:05] LABS: Appearance, Urine Cloudy (Clear); Bilirubin, Urine Neg (Neg); Blood, Urine 4+ (Neg); Color, Urine Yellow (P-Yellow); Glucose Qualitative, Urine 1+ (Neg); Ketones, Urine 2+ (Neg); Leukocyte Esterase, Urine 2+ (Neg); Nitrite, Urine Neg (Neg); Protein, Urine 2+ (Neg); Specific Gravity, Urine 1.005 (1.003-1.022); Urobilinogen, Urine NORM (Normal)
[2025-02-27] MEDS ORDERED: Vancomycin HCL 1,000 MG in NS 250 ML IV ONE (15:45)
[2025-02-27 15:55] LABS: Amorphous Mod (0-Heavy); Bacteria Many /hpf; Mucus Light (0-Heavy); Squamous Epithelial Cells Rare /hpf (Few)
[2025-02-27] MEDS ORDERED: Acetaminophen 325 MG TABLET PO PRN (17:00)
[2025-02-27] MEDS ORDERED: Enoxaparin 40 MG/0.4 ML SYR SC SCH (17:00)
[2025-02-27] MEDS ORDERED: Ondansetron HCl 2 MG / ML 2ML Vial IV PRN (17:05)
--- NOTE | 2025-02-27 19:16 | NUR ---
TRANSFER TO PCU FROM ED: PT ARRIVES TO [id number] FROM THE ED VIA GURNEY. PT ARRIES A&OX4. FOLLOWS COMMANDS AND ANSWERS QUESTIONS APPROPRIATELY. VSS. PT HAS A SUPRAPUBIC CATHETER IN PLACE THAT IS DRAINING TO A LEG BAG. PROVIDER AT BEDSIDE TO EVALUATE PT. THIS RN PERFOEMED A BEDSIDE SWALLOW EVAL ON PT PER PROVIDER ORDERS. PT DID NOT APPEAR TO ASPIRATE ON WATER OR APPLE SAUCE. THIS WAS PASSED ONTO IVORY POLISHER. FAMILY AND CAREGIVER AT BEDSIDE. REPORT TO ELSA SINGLETARY TO ASSUME CARE OF PT.
[2025-02-27 20:13] VITALS: BP 141/73
[2025-02-27 23:50] VITALS: BP 123/78
[2025-02-28] MEDS ORDERED: Bisacodyl 5 MG TabEC PO PRN (00:10)
[2025-02-28] MEDS ORDERED: Albuterol HFA200 ACT/6.7 GM INH INH PRN (00:25)
[2025-02-28 04:01] VITALS: BP 129/70
[2025-02-28 04:55] LABS: BASOPHILS ABSOLUTE AUTO 0.04 K/mm3 (0.00-0.23); BASOPHILS PERCENT AUTO 1 % (0-2); EOSINOPHILS ABSOLUTE AUTO 0.04 K/mm3 (0.00-0.68); EOSINOPHILS PERCENT AUTO 1 % (0-6); Hematocrit 33.9 % (37.0-53.0); Hemoglobin 10.8 g/dL (13.5-17.5); IMMATURE GRAN ABSOLUTE AUTO 0.01 K/mm3 (0.00-0.10); IMMATURE GRAN PERCENT AUTO 0 % (0-1); LYMPHOCYTES ABSOLUTE AUTO 1.98 K/mm3 (0.84-5.20); LYMPHOCYTES PERCENT AUTO 36 % (21-46); MONOCYTES ABSOLUTE AUTO 0.39 K/mm3 (0.16-1.47); MONOCYTES PERCENT AUTO 7 % (4-13); Mean Corpuscular HGB 30.3 pg (26.0-34.0); Mean Corpuscular HGB Conc 31.9 g/dL (31.5-36.5); Mean Corpuscular Volume 95 fL (80-100); Mean Platelet Volume 9.7 fL (9.1-12.4); NEUTROPHILS ABSOLUTE AUTO 3.04 K/mm3 (1.96-9.15); NEUTROPHILS PERCENT AUTO 55 % (41-73); Platelet Count 257 K/mm3 (150-400); RDW Coefficient Variation 15.1 % (11.7-14.2); Red Blood Cell Count 3.56 M/mm3 (4.30-5.90)
[2025-02-28] MEDS ORDERED: Vancomycin HCL 500 MG in NS 250 ML IV SCH (05:00)
[2025-02-28 05:14] LABS: Albumin, Blood 2.4 g/dL (3.4-5.0); Albumin/Globulin Ratio 0.6 (0.8-1.8); Bilirubin, Total 0.3 mg/dL (0.1-1.0); Bun/Creatinine Ratio 11.9 (12.0-20.0); Creatinine, Blood 1.01 mg/dL (0.60-1.20); Globulin, Blood 3.8 g/dL (2.2-4.0); Potassium, Blood 3.7 mmol/L (3.5-5.5); Total Protein, Blood 6.2 g/dL (6.4-8.2)
--- NOTE | 2025-02-28 06:03 | NUR ---
SHIFT SUMMARY PATIENT IS ORIENTED TO PERSON, PLACE, AND SELF. RIGHT SIDED DEFICITS FROM PAST CVA. SUPRAPUBIC CATHETER IS PATENT AND DRAINING TO GRAVITY. PATIENT ON RA. PATIENT CONVERTED FROM AFIB TO SINUS JYOTSNA. BLOOD SUGAR OF 67 NOTED ON LABS, PATIENT TREATED WITH A GLUCERNA, BLOOD SUGAR RECHECKED. PATIENT HAD NO DIFFICULTY SWALLOWING. WILL CONTINUE TO MONITOR.
[2025-02-28 07:18] VITALS: BP 131/82
[2025-02-28] MEDS ORDERED: Metoprolol Succinate 50 MG TABCR PO SCH (09:00)
[2025-02-28] MEDS ORDERED: Apixaban 5 MG Tab PO SCH (09:00)
[2025-02-28] MEDS ORDERED: Sacubitril/Valsartan 24 MG-26 MG Tab PO SCH (09:00)
[2025-02-28] MEDS ORDERED: Fluticasone 0.05% Nasal Spray SCH (09:00)
[2025-02-28] MEDS ORDERED: Docusate Sodium 100 MG Cap PO SCH (09:00)
[2025-02-28] MEDS ORDERED: Sennosides 8.6 MG Tab PO SCH (09:00)
[2025-02-28] MEDS ORDERED: Amiodarone HCl 200 MG Tab PO SCH (09:00)
[2025-02-28] MEDS ORDERED: Lactobacil 2-S.Thermo-Bifido 1 1 Cap PO SCH (09:00)
[2025-02-28] MEDS ORDERED: OXcarbazepine 300 MG Tab PO SCH (09:00)
[2025-02-28] MEDS ORDERED: oxyBUTYnin chloride 5 MG TAB PO SCH (09:00)
--- NOTE | 2025-02-28 10:06 | NUR ---
UPDATE: SPEECH THERAPY AT BEDSIDE @0830, PT TO REMAIN NPO AT THIS TIME. PLAN FOR BARIUM SWALLOW THIS AFTERNOON. 1000: CAREGIVERS AT BESIDE FROM [facility]. UPDATED ON PT PLAN OF CARE.
[2025-02-28 11:18] VITALS: BP 136/79
[2025-02-28] MEDS ORDERED: CefTRIAXone Sodium 1,000 MG in NS 100 ML IV SCH (12:00)
[2025-02-28 15:26] VITALS: BP 128/68
--- NOTE | 2025-02-28 16:09 | NUR ---
SHIFT SUMMARY: PT ALERT, ORIENTED TO SELF, PLACE, AND . POOR HISTORIAN. EASILY FORGETFUL. PT WITH HX FAHAD SYNDROME. STRENGTH WEAK, EQUAL BILATERALLY. BP AND HR STABLE. AFEBRILE. SPO2 >96% ON ROOM AIR. LUNG SOUNDS CLEAR THROUGHOUT, RESPIRTAIONS EVEN AND UNLABORED. ABD SOFT, NON TENDER, BOWEL SOUNDS +. PULSES STRONG AND EQUAL THROUGHOUT. PT WITH SUPRAPUBIC CATHETER, DRAINING YELLOW URINE TO GRAVITY. PT CURRENTLY NPO DUE TO PENDING BARIUM SWALLOW 03/01/25. CAREGIVERS AND MOM AT BEDSIDE THIS AFTERNOON, UPDATED ON PT PLAN OF CARE. PT SBA TO AND FROM BSC. DENIES PAIN THROUGHOUT. BED IN LOW, CALL LIGHT IN REACH, WILL REPORT TO ONCOMING RN.
--- NOTE | 2025-02-28 17:12 | NUR ---
Pt. is resting in bed when this sericulture teacher facilitated a long discussion with his parents. Pt. is known to this sericulture teacher form the community for many years. Pt. is developmentally delayed but is very pleasant. Facilitated a lengthy discussion when his parents and I entered the room. Pt. displayed evidence of being pleased with our visit. Pt. verbalized that he was constipated. Considered other matters of leroy and his scientologist community. Prayed with Pt. Pt. welcomed this sericulture teacher to return. Will remain available to the Pt. and family.
[2025-02-28 20:51] VITALS: BP 145/85
[2025-02-28] MEDS ORDERED: RisperiDONE 0.25 MG Tab PO SCH (21:00)
[2025-03-01 00:25] VITALS: BP 129/85
[2025-03-01 04:50] VITALS: BP 119/62
--- NOTE | 2025-03-01 06:44 | NUR ---
SHIFT SUMMARY PATIENT ORIENTED TO PERSON, PLACE, AND SELF. PATIENT CONTINUES ON ROOM AIR. VITAL SIGNS STABLE. NO ACUTE CHANGES OVERNIGHT. WILL CONTINUE TO MONITOR.
[2025-03-01 07:39] VITALS: BP 124/63
--- NOTE | 2025-03-01 13:32 | NUR ---
TRANSFER 1220 PT AOX3/4, COOPERATIVE, ABLE TO MAKE NEEDS KNOWN. KNOWN NEURO DEFICITS. FAMILY IS BEDSIDE ASSISTING WITH CARE AND SUPERVISION. SUPRAPUBIC CATHETER INTACT DRAINING TO GRAVITY. PT ABLE TO BE TRANSFERRED HEAVING 1 PERSON ASSIST. NOTE: PER SPIRITUAL CARE VISITATION AT 1330, SPIRITUAL CARE NOTICED PT HAS CONSISTANT COUGH THAT OCCURED WHILE DOWN IN PCU. SKIN LOOKS INTACT, BONY PROMINANCE ON ELBOWS, KNEES, COCCYX. REDNESS ON BUTTOCKS DUE TO SITTING IN CHAIR FOR LONG PERIODS. BED IN LOWEST POSITION, CALL LIGHT WTIHIN REACH.
--- NOTE | 2025-03-01 13:39 | NUR ---
Pt. is awake in his new bed on the medical floor when he welcomes my visit. Pts. mom is at bedside. Pt. is known to this insole buffer from the community. Pt. displays evidence of being alert and responsive. Pt. also displays evidence of a persistant cough. Prayed for the Pt. Pt. and his mom verbalized gratitude for the spiritual care visit. This insole buffer shared concerns of Pts. cough with attending nurse.
[2025-03-01] MEDS ORDERED: NS 250 ML IV PRN (13:40)
[2025-03-01 15:32] VITALS: BP 142/80
--- NOTE | 2025-03-01 17:40 | NUR ---
SHIFT SUMMARY PT ARRIVED 1250 IN ROOM FROM TRANPORT BY WHEELCHAIR, MOTHER IS BEDSIDE. AO 3/4, COOPERATIVE, ABLE TO MAKE NEEDS KNOWN. PT IS [place] AT TIMES, VERY LOUD AT BASELINE. IS ON MINCE MOIST DIET, NECTAR THICK LIQUIDS. TOLERATING IV MEDICATION WELL. SUPRAPUBIC CATHETER INTACT AND DRAINING TO GRAVITY. PT IS HEAVY 1 PERSON ASSIST TO COMMODE FOR VOIDING, NO BM THIS SHIFT. BED IN LOWEST POSITION, CALL LIGHT WITHIN REACH.
[2025-03-01 20:15] VITALS: BP 145/91
[2025-03-01 23:45] VITALS: BP 136/79
[2025-03-02 03:25] VITALS: BP 120/73
[2025-03-02 07:05] VITALS: BP 120/82
[2025-03-02] MEDS ORDERED: Ketoconazole15 GM TOP (11:18)
[2025-03-02] MEDS ORDERED: CEFD300 PO ×2 (11:29→11:44)
[2025-03-02] MEDS ORDERED: VISBIOME 112.51 EACH PO (11:44)
--- NOTE | 2025-03-02 12:14 | NUR ---
PT WAS DISCHARGED UNDER MD INSTRUCTIONS. PT AND CAREGIVER HAD NO QUESTIONS OR CONCERNS. SCRIPTS SENT TO PREFERRED [facility] AND D/C PACKET WAS HANDED OFF TO CAREGIVER
== END 2025-03-02 12:13 | disposition home or self-care (01) | DRG 871 ==
LOC: ER 11:30 → PCU 16:57 → ERHOLD 16:57 → PCU 18:26 → MEDS 03-01 12:45
PROVIDERS: Emergency Medicine; ADMIT Internal Medicine
DX: A41.9 Sepsis, unspecified organism (principal); R65.21 Severe sepsis with septic shock; I69.351 Hemiplegia and hemiparesis following cerebral infarction affecting right dominant side; Q93.82 Williams syndrome; T83.510A Infection and inflammatory reaction due to cystostomy catheter, initial encounter; I10 Essential (primary) hypertension; J45.909 Unspecified asthma, uncomplicated; F32.A Depression, unspecified; I48.91 Unspecified atrial fibrillation; R13.10 Dysphagia, unspecified; I48.0 Paroxysmal atrial fibrillation; G40.909 Epilepsy, unspecified, not intractable, without status epilepticus; Z87.81 Personal history of (healed) traumatic fracture; Z86.74 Personal history of sudden cardiac arrest; Z95.2 Presence of prosthetic heart valve; Z88.8 Allergy status to other drugs, medicaments and biological substances; Z79.51 Long term (current) use of inhaled steroids; Z79.899 Other long term (current) drug therapy; Z79.01 Long term (current) use of anticoagulants; Z86.59 Personal history of other mental and behavioral disorders; Z62.29 Other upbringing away from parents; I69.328 Other speech and language deficits following cerebral infarction
CPT/HCPCS: 36415; 70450; 71045; 74230; 80053; 81001; 82947; 83605; 83880; 85025; 87086; 87428-QW; 92610; 92611; 93005; 93010; 94760; 94762; 96361; 96365; 96367; 99285-25; A9270; J0696; J1650; J3370; J7030; J7050; J7120

== ENCOUNTER 2025-03-10 22:18 | Inpatient (IN) | payer OTHER ==
[~2025-03-10] VITALS: Ht 162.6 cm; Wt 38.5 kg
[~2025-03-10 22:18] MED LIST changes: +AMIODARONE HCL100 M3 PO; +BENEFIBER PO; +DOXY100 PO; +Ketoconazole15 GM TOP; +METO50ER PO; +SENN187 PO
[2025-03-11 00:39] LABS: BASOPHILS ABSOLUTE AUTO 0.03 K/mm3 (0.00-0.23); BASOPHILS PERCENT AUTO 0 % (0-2); EOSINOPHILS PERCENT AUTO 0 % (0-6); Hematocrit 36.2 % (37.0-53.0); Hemoglobin 11.5 g/dL (13.5-17.5); IMMATURE GRAN ABSOLUTE AUTO 0.04 K/mm3 (0.00-0.10); IMMATURE GRAN PERCENT AUTO 0 % (0-1); LYMPHOCYTES ABSOLUTE AUTO 1.17 K/mm3 (0.84-5.20); LYMPHOCYTES PERCENT AUTO 13 % (21-46); MONOCYTES ABSOLUTE AUTO 0.89 K/mm3 (0.16-1.47); MONOCYTES PERCENT AUTO 10 % (4-13); Mean Corpuscular HGB 30.3 pg (26.0-34.0); Mean Corpuscular HGB Conc 31.8 g/dL (31.5-36.5); Mean Corpuscular Volume 95 fL (80-100); Mean Platelet Volume 9.7 fL (9.1-12.4); NEUTROPHILS ABSOLUTE AUTO 6.84 K/mm3 (1.96-9.15); NEUTROPHILS PERCENT AUTO 76 % (41-73); Platelet Count 246 K/mm3 (150-400); RDW Coefficient Variation 15.7 % (11.7-14.2); RDW Standard Deviation 54.2 fL (35.1-46.3); White Blood Cell Count 8.97 K/mm3 (4.00-11.30)
[2025-03-11 01:05] LABS: Albumin, Blood 2.9 g/dL (3.4-5.0); Albumin/Globulin Ratio 0.7 (0.8-1.8); Bilirubin, Total 0.5 mg/dL (0.1-1.0); Bun/Creatinine Ratio 14.9 (12.0-20.0); Calcium, Blood 8.5 mg/dL (8.5-10.1); Creatinine, Blood 0.87 mg/dL (0.60-1.20); Globulin, Blood 4.4 g/dL (2.2-4.0); Potassium, Blood 4.1 mmol/L (3.5-5.5); Total Protein, Blood 7.3 g/dL (6.4-8.2)
[2025-03-11 01:15] LABS: Influenza A, PCR NEGATIVE (NEGATIVE); Influenza B, PCR NEGATIVE (NEGATIVE); Resp Syncytial Virus, PCR POSITIVE (NEGATIVE); SARS-Cov-2 (COVID-19) PCR, MMC NEGATIVE (NEGATIVE)
[2025-03-11 01:18] LABS: Source, Urine Suprapubic Cath
[2025-03-11 01:26] LABS: Bilirubin, Urine Neg (Neg); Blood, Urine 5+ (Neg); Glucose Qualitative, Urine Neg (Neg); Ketones, Urine Neg (Neg); Leukocyte Esterase, Urine 3+ (Neg); Nitrite, Urine Pos (Neg); Protein, Urine 3+ (Neg); Specific Gravity, Urine 1.015 (1.003-1.022); Urobilinogen, Urine NORM (Normal); pH, Urine 6.5 (5.0-8.0)
[2025-03-11 01:29] LABS: Appearance, Urine Cloudy (Clear); Color, Urine Yellow (P-Yellow)
[2025-03-11 01:41] LABS: Bacteria Mod /hpf; Red Blood Cells, Urine 0-2 /hpf (0-2); Squamous Epithelial Cells Not Seen /hpf (Few); White Blood Cells, Urine TNTC /hpf (0-5)
[2025-03-11] MEDS ORDERED: CefTRIAXone Sodium 1,000 MG in NS 100 ML IV ONE (01:45)
[2025-03-11] MEDS ORDERED: Vancomycin HCL 1,000 MG in NS 250 ML IV ONE (02:00)
[2025-03-11] MEDS ORDERED: Ondansetron 4 MG TAB PO PRN (03:50)
[2025-03-11] MEDS ORDERED: Bisacodyl 5 MG TabEC PO PRN (03:50)
[2025-03-11] MEDS ORDERED: CefTRIAXone Sodium 1,000 MG in NS 100 ML IV SCH (05:40)
[2025-03-11 06:03] VITALS: BP 157/91
--- NOTE | 2025-03-11 06:30 | NUR ---
PT ADMITTED FORM ED THIS EARLY AM. PT A&O X2, PT WITH UTI, SUPRAPUBIC CATH INTACT AND LEG BAG CHANGED TO BSD. PT PLEASANT AND COOPERATIVE, GIVEN CALL LIGHT BUT WILL NEED TO CHECK ON HIM FREQUENTLY HE HAS ONLY USE OF LEFT HAND. MAX ASSIST WITH MOBILITY, TO BE ON IVABX. WILL NEED MAX ASSIST WITH ADL'S.
[2025-03-11 07:31] VITALS: BP 124/69
[2025-03-11] MEDS ORDERED: Acetaminophen 500 MG Tab PO PRN (08:20)
[2025-03-11] MEDS ORDERED: Albuterol HFA200 ACT/6.7 GM INH INH PRN (08:25)
[2025-03-11] MEDS ORDERED: oxyBUTYnin chloride 5 MG TAB PO SCH (09:00)
[2025-03-11] MEDS ORDERED: Metoprolol Succinate 25 MG TABCR PO SCH (09:00)
[2025-03-11] MEDS ORDERED: OXcarbazepine 300 MG Tab PO SCH (09:00)
[2025-03-11] MEDS ORDERED: Atorvastatin 10 MG Tab PO SCH (09:00)
[2025-03-11] MEDS ORDERED: Sennosides 8.6 MG Tab PO SCH (09:00)
[2025-03-11] MEDS ORDERED: Lactobacil 2-S.Thermo-Bifido 1 1 Cap PO SCH (09:00)
[2025-03-11] MEDS ORDERED: Amiodarone HCl 200 MG Tab PO SCH (09:00)
[2025-03-11] MEDS ORDERED: Sacubitril/Valsartan 24 MG-26 MG Tab PO SCH (09:00)
[2025-03-11] MEDS ORDERED: Docusate Sodium 100 MG Cap PO SCH (09:00)
[2025-03-11] MEDS ORDERED: Apixaban 5 MG Tab PO SCH (09:00)
[2025-03-11] MEDS ORDERED: NS 250 ML IV PRN (09:35)
[2025-03-11] MEDS ORDERED: Aspirin 81 MG Chew PO SCH (11:00)
[2025-03-11 14:58] VITALS: BP 143/75
--- NOTE | 2025-03-11 17:37 | NUR ---
SHIFT SUMMARY NO ACUTE CHANGES, A/O TO SELF, PERSON, , SOME OF HIS SITUATION. ABLE TO MAKE NEEDS KNOWN AND USES CALL LIGHT APPROPRIATELY. PT DENIES PAIN. SUPRAPUBIC CATHETER PATNENT AND DRAINING HAZY YELLOW URINE. GOOD APPETITE. CONTINUING IV ABX TO CLEAR UTI. PT CURRENTLY LAYING IN HOSPITAL BED WITH HOB ELEVATED, CALL LIGHT WITHIN REACH AND BED IN LOWEST POSITION.
[2025-03-11 19:29] VITALS: BP 119/72
[2025-03-11] MEDS ORDERED: RisperiDONE 0.25 MG Tab PO SCH (21:00)
--- NOTE | 2025-03-12 03:42 | NUR ---
SHIFT SUMMARY NO ACUTE EVENTS DURING THIS SHIFT. SUPRAPUBIC CATHTER DRAINING TEA COLOR URINE. PT IS ALERT, ORIENTED TO SELF, PERSON AND SITUATION, REMEMBERS . USES CALL LIGHT T/O THIS SHIFT, VERY LITTLE REST TONIGHT. PT DENIES PAIN AND DISCOMFORT. GOOD PO FLUID INTAKE. BED AT THE LOWEST POSITION, CALL LIGHT W/I REACH. PT IS ABLE TO MAKE HIS NEEDS KNOWN AND IS COOPERATIVE WITH CARE.
[2025-03-12 03:54] VITALS: BP 109/60
[2025-03-12 06:18] LABS: BASOPHILS ABSOLUTE AUTO 0.03 K/mm3 (0.00-0.23); BASOPHILS PERCENT AUTO 1 % (0-2); EOSINOPHILS ABSOLUTE AUTO 0.02 K/mm3 (0.00-0.68); EOSINOPHILS PERCENT AUTO 0 % (0-6); Hematocrit 39.4 % (37.0-53.0); Hemoglobin 12.6 g/dL (13.5-17.5); IMMATURE GRAN ABSOLUTE AUTO 0.02 K/mm3 (0.00-0.10); IMMATURE GRAN PERCENT AUTO 0 % (0-1); LYMPHOCYTES ABSOLUTE AUTO 1.98 K/mm3 (0.84-5.20); LYMPHOCYTES PERCENT AUTO 30 % (21-46); MONOCYTES ABSOLUTE AUTO 0.87 K/mm3 (0.16-1.47); MONOCYTES PERCENT AUTO 13 % (4-13); Mean Corpuscular HGB 29.9 pg (26.0-34.0); Mean Corpuscular Volume 93 fL (80-100); Mean Platelet Volume 10.1 fL (9.1-12.4); NEUTROPHILS ABSOLUTE AUTO 3.72 K/mm3 (1.96-9.15); NEUTROPHILS PERCENT AUTO 56 % (41-73); Platelet Count 238 K/mm3 (150-400); RDW Coefficient Variation 15.8 % (11.7-14.2); RDW Standard Deviation 53.9 fL (35.1-46.3); Red Blood Cell Count 4.22 M/mm3 (4.30-5.90); White Blood Cell Count 6.64 K/mm3 (4.00-11.30)
[2025-03-12 06:36] LABS: Bun/Creatinine Ratio 11.2 (12.0-20.0); Calcium, Blood 8.9 mg/dL (8.5-10.1); Creatinine, Blood 0.89 mg/dL (0.60-1.20); Potassium, Blood 3.6 mmol/L (3.5-5.5)
[2025-03-12 08:15] VITALS: BP 134/80
--- NOTE | 2025-03-12 14:48 | NUR ---
CANAL BOAT CAPTAIN ACCIDENTALLY DOCUMENTED 114 RESPIRATIONS IN PT CHART USING VITALS MACHINE - PT RESPIRATIONS ARE ACTUALLY 14 IN A 60 SEC. PERIOD - CONFIRMED BY THIS RN. PT IS IN NO RESPIRATORY DESTRESS.
--- NOTE | 2025-03-12 17:06 | NUR ---
SHIFT SUMMARY NO ACUTE CHANGES, A/0x2, ABLE TO MAKE NEEDS KNOWN AND USES CALL LIGHT APPROPRIATELY. PT DENIES PAIN. CONTINUES ON IV ABX FOR UTI. PLAN TO BE DISCHARGED TOMORROW. MED REC COMPLETED PER MED LIST PROVIDED BY FACILITY WHERE PT RESIDES. SUPRAPUBIC CATHETER PATENT AND DRAINING HAZY SUKH COLORED URINE - APPEARS TO BE PT BASELINE. PT CURRENTLY RESTING IN BED WITH CALL LIGHT WITHIN REACH AND BED IN LOWEST POSITION.
[2025-03-12 19:45] VITALS: BP 129/73
--- NOTE | 2025-03-13 03:30 | NUR ---
SHIFT SUMMARY NO ACUTE EVENTS DURING THIS SHIFT. NO CHANGES NOTED FROM PREVIOUS NOC SHIFT. PT IS A/O X3, ABLE TO MAKE HIS NEEDS KNOWN AND COOPERATIVE WITH CARE. CHRONIC SUPRAPUBIC CATHETER DRAINING SUKH COLOR URINE. PT DENIES PAIN AND DISCOMFORT. @HS SITTING IN CHAIR WITH CHAIR ALARM ON. 2-PERSON ASSIST. HS SNACK PROVIDED, PT IS ON MINCED AND MOIST DIET. BED AT THE LOWEST POSITION, CALL LIGHT W/I REACH. BED ALARM FOR SAFETY. PLAN IS TO D/C TODAY.
[2025-03-13 07:03] VITALS: BP 101/69
[2025-03-13] MEDS ORDERED: Cefepime HCl 2,000 MG in NS 100 ML IV SCH (08:00)
[2025-03-13 08:57] VITALS: BP 93/69
[2025-03-13 09:56] LABS: BASOPHILS ABSOLUTE AUTO 0.03 K/mm3 (0.00-0.23); BASOPHILS PERCENT AUTO 0 % (0-2); EOSINOPHILS ABSOLUTE AUTO 0.08 K/mm3 (0.00-0.68); EOSINOPHILS PERCENT AUTO 1 % (0-6); Hematocrit 41.3 % (37.0-53.0); Hemoglobin 13.2 g/dL (13.5-17.5); IMMATURE GRAN ABSOLUTE AUTO 0.02 K/mm3 (0.00-0.10); IMMATURE GRAN PERCENT AUTO 0 % (0-1); LYMPHOCYTES ABSOLUTE AUTO 2.09 K/mm3 (0.84-5.20); LYMPHOCYTES PERCENT AUTO 30 % (21-46); MONOCYTES PERCENT AUTO 9 % (4-13); Mean Corpuscular HGB 30.1 pg (26.0-34.0); Mean Corpuscular Volume 94 fL (80-100); Mean Platelet Volume 10.4 fL (9.1-12.4); NEUTROPHILS PERCENT AUTO 59 % (41-73); Platelet Count 276 K/mm3 (150-400); RDW Coefficient Variation 15.7 % (11.7-14.2); RDW Standard Deviation 54.4 fL (35.1-46.3); Red Blood Cell Count 4.39 M/mm3 (4.30-5.90); White Blood Cell Count 6.92 K/mm3 (4.00-11.30)
[2025-03-13 10:33] LABS: Albumin/Globulin Ratio 0.6 (0.8-1.8); Bilirubin, Total 0.3 mg/dL (0.1-1.0); Calcium, Blood 8.7 mg/dL (8.5-10.1); Creatinine, Blood 0.81 mg/dL (0.60-1.20); Globulin, Blood 4.7 g/dL (2.2-4.0); Potassium, Blood 2.9 mmol/L (3.5-5.5); Total Protein, Blood 7.7 g/dL (6.4-8.2)
--- NOTE | 2025-03-13 11:02 | NUR ---
Pt. is awake and "slumping" in his chair when he welcomes my visit. This customer service officer knows the Pt. and his family, and knows the Pt. by his middle name "matteo'. facilitated an update as the pt. has recently been discharged. Pt. verbalized an expectation that he would be discharged home soon. Prayed for the Pt. Pt. verbalized graititude and requested to be moved back into his bed. Notified attending nurse.
[2025-03-13] MEDS ORDERED: Potassium Chloride 20 MEQ/15 ML UDC PO ONE (11:35)
[2025-03-13] MEDS ORDERED: Potassium Chloride 20 MEQ TabCR PO ONE (11:35)
[2025-03-13] MEDS ORDERED: ASPI81CH PO (13:28)
[2025-03-13] MEDS ORDERED: VISBIOME 112.51 EACH PO (13:29)
[2025-03-13] MEDS ORDERED: CIPR750 PO (13:30)
--- NOTE | 2025-03-13 14:43 | NUR ---
DISCHARGE SUMMARY PT DISCHARGED BACK TO HOME ([facility]). IV REMOVED BY SUPERVISOR [employer], SITE APPEARS WNL. DISCHARGED WITH CHRONIC SUPRAPUBIC CATHETER. HOME HEALTH SERVICES ORDERED UPON DISCHARGE. MEDS FAXED TO [facility] PER FACILITY REQUEST. REVIEWED DISCHARGE PACKET WITH MOTORCYCLE BUILDER KRISTIE. THIS RN ATTEMPTED TO CALL PT MOM TO NOTIFY OF DISCHARGE - NO ANSWER, VOICEMAIL LEFT. PT LEFT IN HIS OWN WC WITH FACILITY STAFF.
== END 2025-03-13 14:35 | disposition home health service (06) | DRG 699 ==
LOC: ER 22:18 → MEDS 22:19
PROVIDERS: Family Medicine; Student in an Organized Health Care Education/Training Program; ADMIT Student in an Organized Health Care Education/Training Program
DX: T83.511A Infection and inflammatory reaction due to indwelling urethral catheter, initial encounter (principal); I50.22 Chronic systolic (congestive) heart failure; J21.0 Acute bronchiolitis due to respiratory syncytial virus; I69.851 Hemiplegia and hemiparesis following other cerebrovascular disease affecting right dominant side; I48.0 Paroxysmal atrial fibrillation; I11.0 Hypertensive heart disease with heart failure; I95.9 Hypotension, unspecified; G40.909 Epilepsy, unspecified, not intractable, without status epilepticus; Z88.8 Allergy status to other drugs, medicaments and biological substances; Y84.6 Urinary catheterization as the cause of abnormal reaction of the patient, or of later complication, without mention of misadventure at the time of the procedure; Z87.81 Personal history of (healed) traumatic fracture; Z86.79 Personal history of other diseases of the circulatory system; Z86.74 Personal history of sudden cardiac arrest; Z95.2 Presence of prosthetic heart valve; Z79.899 Other long term (current) drug therapy; Z88.1 Allergy status to other antibiotic agents; Z79.01 Long term (current) use of anticoagulants
CPT/HCPCS: 0241U; 36415; 71046; 80048; 80053; 81001; 83690; 84145; 84484; 85025; 87077; 87086; 87186; 93005; 93010; 94760; 96374; 96376; 99285-25; A9270; G0378; J0692; J0696; J3370; J7050

== ENCOUNTER 2025-09-08 19:53 | Emergency (ER) | payer OTHER ==
[~2025-09-08] VITALS: Ht 152.4 cm; Wt 40.4 kg
[~2025-09-08 19:53] MED LIST changes: +ASPI81CH PO; +CIPR750 PO
[2025-09-08 19:57] VITALS: BP 123/64
== END 2025-09-08 20:22 | disposition home or self-care (01) ==
LOC: ER 19:53
DX: T83.89XA Other specified complication of genitourinary prosthetic devices, implants and grafts, initial encounter (principal); I10 Essential (primary) hypertension; J45.909 Unspecified asthma, uncomplicated; I48.91 Unspecified atrial fibrillation; Z79.01 Long term (current) use of anticoagulants; Z79.899 Other long term (current) drug therapy
CPT/HCPCS: 99283